=== PATIENT | male | born 1960 | race Caucasian/White ===

== ENCOUNTER 2017-11-03 13:08 | Inpatient (IN) | payer SELFPAY ==
[~2017-11-03] VITALS: Ht 175.3 cm; Wt 86.2 kg
[~2017-11-03 13:08] MED LIST: AMLO-546 PO; AMLO-99 PO; ASPI-715 PO; CRAN200C5 PO; DOCU-416 PO; EPLE25TA18 PO; EPLE50TA11 PO; GABA-549 PO; HCTZ25 PO; LEVE500T73 PO; LIS20 PO; METO-1 PO; METO50TA19 PO; NIFEDIPINE PO; OXYC-865 PO; PSE30 PO; TAMS0.4C25 PO; Work Note; [UNRECOGNIZED DRUG - REMARK]
--- NOTE | 2017-11-03 13:20 | ER Report ---
History and Physical Time Seen By MD: 13:20 HPI/ROS CHIEF COMPLAINT: Abdominal pain HISTORY OF PRESENT ILLNESS: 57-year-old male patient presents to emergency room with complaint of abdominal pain. Patient states has been going on for several days. He did go see his primary care provider yesterday. They did start him on antibiotics. He was offered a CT scan at that time as well as lab work. He refused at that time due to cost. Patient states that he has been having significant amounts of diarrhea. He is also had a few bouts of vomiting. Patient states the pain seems to be more in the left lower quadrant. Daughter states the patient does drink a significant amount of alcohol. That he drinks daily and she is seeing him drink half a gallon of spiced rum in an 8 hour period. She is concerned about possible cirrhosis as well. She also states that he has been confused, not acting like himself. He states he did have a fever yesterday of 103. Today he had a temperature of 98.6 in the emergency room. REVIEW OF SYSTEMS: Respiratory: No cough, no dyspnea. Cardiovascular: No chest pain, no palpitations. Gastrointestinal: As noted above Musculoskeletal: No back pain. Allergies: Coded Allergies: No Known Drug Allergies (Verified , 12/28/14) Home Meds Reported Medications Ciprofloxacin Hcl (CIPROFLOXACIN HCL) 500 Mg Tablet, 500 MG PO Q12H, #14 TAB 11/03/17 Metronidazole/Sodium Chloride (METRONIDAZOLE 500 MG/100 ML) 500 Mg/100 Ml Piggyback, 500 MG PO 11/03/17 Amlodipine Besylate (AMLODIPINE BESYLATE) 10 Mg Tablet, 1 TAB PO QDAY, TAB 12/28/14 Metoprolol Succinate (METOPROLOL SUCCINATE) 50 Mg Tab.er.24h, 1 TAB PO BID 08/06/13 Discontinued Reported Medications Gabapentin (GABAPENTIN) 300 Mg Capsule, 1 CAP PO QID, CAPSULE 12/28/15 Eplerenone (EPLERENONE) 50 Mg Tablet, 1 TAB PO QDAY, TAB 12/28/15 Discontinued Scripts [Work Note] No Conflict Check Patient seen in office today for routine followup. Advise he continue to work no more than 35-40 hrs/wk. Repeat eval in 1 month. 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 Patient has surgical history of sinus surgery, hernia repair, kidney stones. Patient has a family medical history of cancer, CAD, diabetes. Reviewed Nurses Notes: Yes Hx Smoking: No Smoking Status: Never Smoker Hx Substance Use Disorder: No Hx Alcohol Use: No Constitutional Vital Sign - Last 24 Hours 11/03/17 13:15 Temp 98.6 Pulse 78 Resp 18 B/P (MAP) 140/89 Pulse Ox 90 O2 Delivery Room Air Physical Exam General Appearance: The patient is alert, has no immediate need for airway protection and no current signs of toxicity. ENT: Tympanic membranes are pearly-joseph, auditory canals are patent, mucous membranes are moist. Respiratory: Chest is non tender, lungs are clear to auscultation. Cardiac: regular rate and rhythm Gastrointestinal: Abdomen is distended and tender in the left lower quadrant, no masses, bowel sounds normal. Musculoskeletal: Neck: Neck is supple and non tender. Extremities have full range of motion and are non tender. Skin: No rashes or lesions. DIFFERENTIAL DIAGNOSIS: After history and physical exam differential diagnosis was considered for abdominal pain including but not limited to appendicitis, cholecystitis, gastritis and urinary tract infection. Medical Decision Making Data Points Result Diagram: 11/03/17 1345 11/03/17 1345 Laboratory Hematology Test 11/03/17 13:45 11/03/17 15:46 Red Blood Count 4.77 M/uL (4.00-5.60) Mean Corpuscular Volume 97.8 fL (80.0-96.0) Mean Corpuscular Hemoglobin 34.3 pg (26.0-33.0) Mean Corpuscular Hemoglobin Concent 35.1 g/dL (32.0-36.0) Red Cell Distribution Width 13.0 % (11.5-14.5) Mean Platelet Volume 8.8 fL (7.2-11.1) Neutrophils (%) (Auto) 80.6 % (39.4-72.5) Lymphocytes (%) (Auto) 10.0 % (17.6-49.6) Monocytes (%) (Auto) 8.5 % (4.1-12.4) Eosinophils (%) (Auto) 0.4 % (0.4-6.7) Basophils (%) (Auto) 0.5 % (0.3-1.4) Nucleated RBC Relative Count (auto) 0.0 /100WBC Neutrophils # (Auto) 15.0 K/uL (2.0-7.4) Lymphocytes # (Auto) 1.9 K/uL (1.3-3.6) Monocytes # (Auto) 1.6 K/uL (0.3-1.0) Eosinophils # (Auto) 0.1 K/uL (0.0-0.5) Basophils # (Auto) 0.1 K/uL (0.0-0.1) Nucleated RBC Absolute Count (auto) 0.00 K/uL Sodium Level 137 mmol/L (137-145) Potassium Level 2.9 mmol/L (3.5-5.0) Chloride Level 95 mmol/L (98-107) Carbon Dioxide Level 28 mmol/L (22-30) Blood Urea Nitrogen 6 mg/dl (9-21) Creatinine 0.80 mg/dl (0.66-1.25) Glomerular Filtration Rate Calc > 60.0 Random Glucose 126 mg/dl (75-110) Calcium Level 9.2 mg/dl (8.4-10.2) Total Bilirubin 1.7 mg/dl (0.2-1.3) Aspartate Amino Transf (AST/SGOT) 39 U/L (0-35) Alanine Aminotransferase (ALT/SGPT) 31 U/L (0-56) Alkaline Phosphatase 170 U/L (0-126) Ammonia 17 UMOL/L (9-33) Total Protein 6.6 gm/dl (6.3-8.2) Albumin 3.4 g/dl (3.5-5.0) Amylase Level < 30 U/L (0-110) Lipase 106 U/L (23-300) Urine Color Regina Urine Clarity Clear Urine pH 6.0 pH (4.8-9.5) Urine Specific Muir 1.019 Urine Protein Negative mg/dL (NEGATIVE) Urine Glucose (UA) Negative mg/dL (NEGATIVE) Urine Ketones Negative mg/dL (NEGATIVE) Urine Blood Negative (NEGATIVE) Urine Nitrite Negative (NEGATIVE) Urine Bilirubin Negative (NEGATIVE) Urine Urobilinogen 2.0 mg/dL (0.2-1.9) Urine Leukocyte Esterase Trace (NEGATIVE) Urine RBC <1 /HPF (0-2/HPF) Urine WBC 1 /HPF (0-5/HPF) Urine Squamous Epithelial Cells None /LPF (</=FEW) Urine Bacteria Negative /HPF (NONE-FEW) Urine Mucus Few /HPF (NONE-FEW) Chemistry Test 11/03/17 13:45 11/03/17 15:46 White Blood Count 18.7 k/uL (4.5-11.0) Red Blood Count 4.77 M/uL (4.00-5.60) Hemoglobin 16.4 g/dL (14.0-18.0) Hematocrit 46.7 % (42.0-52.0) Mean Corpuscular Volume 97.8 fL (80.0-96.0) Mean Corpuscular Hemoglobin 34.3 pg (26.0-33.0) Mean Corpuscular Hemoglobin Concent 35.1 g/dL (32.0-36.0) Red Cell Distribution Width 13.0 % (11.5-14.5) Platelet Count 220 K/uL (150-450) Mean Platelet Volume 8.8 fL (7.2-11.1) Neutrophils (%) (Auto) 80.6 % (39.4-72.5) Lymphocytes (%) (Auto) 10.0 % (17.6-49.6) Monocytes (%) (Auto) 8.5 % (4.1-12.4) Eosinophils (%) (Auto) 0.4 % (0.4-6.7) Basophils (%) (Auto) 0.5 % (0.3-1.4) Nucleated RBC Relative Count (auto) 0.0 /100WBC Neutrophils # (Auto) 15.0 K/uL (2.0-7.4) Lymphocytes # (Auto) 1.9 K/uL (1.3-3.6) Monocytes # (Auto) 1.6 K/uL (0.3-1.0) Eosinophils # (Auto) 0.1 K/uL (0.0-0.5) Basophils # (Auto) 0.1 K/uL (0.0-0.1) Nucleated RBC Absolute Count (auto) 0.00 K/uL Glomerular Filtration Rate Calc > 60.0 Calcium Level 9.2 mg/dl (8.4-10.2) Total Bilirubin 1.7 mg/dl (0.2-1.3) Aspartate Amino Transf (AST/SGOT) 39 U/L (0-35) Alanine Aminotransferase (ALT/SGPT) 31 U/L (0-56) Alkaline Phosphatase 170 U/L (0-126) Ammonia 17 UMOL/L (9-33) Total Protein 6.6 gm/dl (6.3-8.2) Albumin 3.4 g/dl (3.5-5.0) Amylase Level < 30 U/L (0-110) Lipase 106 U/L (23-300) Urine Color Regina Urine Clarity Clear Urine pH 6.0 pH (4.8-9.5) Urine Specific Muir 1.019 Urine Protein Negative mg/dL (NEGATIVE) Urine Glucose (UA) Negative mg/dL (NEGATIVE) Urine Ketones Negative mg/dL (NEGATIVE) Urine Blood Negative (NEGATIVE) Urine Nitrite Negative (NEGATIVE) Urine Bilirubin Negative (NEGATIVE) Urine Urobilinogen 2.0 mg/dL (0.2-1.9) Urine Leukocyte Esterase Trace (NEGATIVE) Urine RBC <1 /HPF (0-2/HPF) Urine WBC 1 /HPF (0-5/HPF) Urine Squamous Epithelial Cells None /LPF (</=FEW) Urine Bacteria Negative /HPF (NONE-FEW) Urine Mucus Few /HPF (NONE-FEW) Urinalysis Test 11/03/17 15:46 Urine Color Regina Urine Clarity Clear Urine pH 6.0 pH (4.8-9.5) Urine Specific Muir 1.019 Urine Protein Negative mg/dL (NEGATIVE) Urine Glucose (UA) Negative mg/dL (NEGATIVE) Urine Ketones Negative mg/dL (NEGATIVE) Urine Blood Negative (NEGATIVE) Urine Nitrite Negative (NEGATIVE) Urine Bilirubin Negative (NEGATIVE) Urine Urobilinogen 2.0 mg/dL (0.2-1.9) Urine Leukocyte Esterase Trace (NEGATIVE) Urine RBC <1 /HPF (0-2/HPF) Urine WBC 1 /HPF (0-5/HPF) Urine Squamous Epithelial Cells None /LPF (</=FEW) Urine Bacteria Negative /HPF (NONE-FEW) Urine Mucus Few /HPF (NONE-FEW) EKG/Imaging Imaging EXAMINATION: CT HEAD WITHOUT CONTRAST COMPARISON: None available HISTORY: dizziness PROCEDURE: Noncontrast CT from the vertex through the skull base. One of the following dose optimization techniques was utilized in the performance of this exam: Automated exposure control; adjustment of the mA and/or kV according to the patient's size; or use of an iterative reconstruction technique. Specific details can be referenced in the facility's radiology CT exam operational policy. FINDINGS: Brain volume: Age-appropriate. Hemorrhage/extra-axial fluid: None. Mass effect/midline shift/edema: None. Ischemia: Joseph-white differentiation is preserved. Ventricles and basal cisterns: Within normal limits. Posterior fossa: Negative. Vessels: Negative. Calvarium, skull base, and scalp: Negative. Visualized sinuses and orbits: Mucosal thickening with regions of hyperostosis consistent with chronic inflammation. Small regions of chronic appearing erosion through the frontal sinus anterior wall. IMPRESSION: 1. No intracranial hemorrhage or mass effect. 2. No CT findings of acute ischemia. 3. Paranasal sinus chronic inflammation. Report Dictated By: Brennan Dutta MD at 11/03/2017 3:41 PM Report E-Signed By: Brennan Dtuta MD at 11/03/2017 3:46 PM EXAMINATION: CT abdomen and pelvis with contrast COMPARISON: None. HISTORY: Abdominal pain. PROCEDURE: Multiplanar contrast enhanced CT of the abdomen and pelvis with 75 mL intravenous Isovue 370. One of the following dose optimization techniques was utilized in the performance of this exam: Automated exposure control; adjustment of the mA and/or kV according to the patient's size; or use of an iterative reconstruction technique. Specific details can be referenced in the facility's radiology CT exam operational policy. FINDINGS: Visualized thorax: No evidence of acute disease within the visualized lower thorax. Liver: Micronodular hepatic contour with caudate lobe hypertrophy. A few subcentimeter hypodensities are incompletely characterized. Gallbladder and biliary system: Cholelithiasis. No bile duct dilation. Spleen: 12.6 cm homogeneous spleen. Pancreas: Negative. Adrenal glands: Negative. Kidneys and bladder: Subcentimeter cysts. Nonobstructing nephrolithiasis. No renal mass. Urinary bladder is unremarkable. Vessels: Mild aortoiliac atherosclerosis. No abdominal aortic aneurysm. Portal venous system and IVC are unremarkable. Mesenteric vessels are unremarkable. Scattered small portosystemic collaterals. Bowel and mesentery: Stomach is within normal limits. No small bowel obstruction or inflammation. Appendix is within normal limits. Pancolonic wall thickening and edema, greatest along the ascending, transverse, and rectosigmoid colon. No pneumatosis. Distal descending colon and sigmoid mild diverticulosis with no evidence of diverticular inflammation. Pelvic organs: Negative. Lymph nodes: No adenopathy. Free air/free fluid: Small volume of homogeneous low-attenuation abdominopelvic ascites. No organized fluid collection. No pneumoperitoneum. Abdominal wall and osseous structures: Abdominal wall is intact. L4-L5 and L5- S1 moderately advanced degenerative disc disease with moderate canal stenosis. IMPRESSION: 1. Micronodular liver and a small volume of ascites consistent with cirrhosis. 2. Although spleen size is within normal limits, there are scattered small venous collaterals suggestive of portal hypertension. 3. Pancolonic wall inflammation and edema. While this could in part be a reactive change to the free fluid, the findings are concerning for an acute infectious/inflammatory colitis. 4. Additional nonacute findings as described above. Results were discussed with ANDREW HERNANDEZ at 11/03/2017 4:00 PM. Report Dictated By: Brennan Dutta MD at 11/03/2017 3:46 PM Report E-Signed By: Brennan Dutta MD at 11/03/2017 4:02 PM ED Course/Re-evaluation ED Course Patient was admitted and examined, history and physical were obtained. Differential diagnoses were considered. On examination lungs are clear, heart is regular, abdomen is distended and tender to palpation especially in the left lower quadrant. A CBC, CMP, CT scan of the head, CT scan of abdomen and pelvis were done. Patient also had a urinalysis done. The urinalysis was unremarkable, however the CBC showed a white count of 18,000 with a left shift. CMP shows a AST of 37 as well as an alkaline phosphatase of 170, potassium 2.9. Patient did receive a 20 mEq K rider here in the emergency room.. CT scan of the head showed no acute findings. The CT scan of the abdomen and pelvis showed significant cirrhosis of the liver, portal hypertension as well as inflammatory changes throughout the colon consistent with an infectious colitis. I discussed the case with Dr. Genao, hospitalist, who agreed to accept the patient for admission. I discussed this with the patient and his daughter who verbalized understanding and agreement with plan. Decision to Disposition Date: November 03, 2017 Decision to Disposition Time: 16:49 Depart Departure Latest Vital Signs Vital Signs Date Time Temp Pulse Resp B/P (MAP) Pulse Ox O2 Delivery O2 Flow Rate FiO2 11/03/17 13:15 98.6 78 18 140/89 90 Room Air Impression: Primary Impression: Infectious colitis Additional Impression: Hypokalemia Condition: Condition Unchanged Disposition: Admitted from ER Referrals: BONY NAIR DNP, [employer] (PCP) Problem Qualifiers ANDREW HERNANDEZ November 03, 2017 13:20
[2017-11-03] MEDS ORDERED: METR500P18 PO (13:26)
[2017-11-03] MEDS ORDERED: NS(*) 0.9% 1000 ML BAG 1,000 ML IV ONE (13:27)
[2017-11-03] MEDS ORDERED: CIPR-214 PO (13:27)
[2017-11-03] MEDS ORDERED: IOPAMIDOL 76% 75 ML INFUS BTL 75 ML ONE (13:40)
[2017-11-03] MEDS ORDERED: ONDANSETRON 4 MG/2 ML VIAL IVP ONE (14:00)
[2017-11-03 14:03] LABS: PLATELET COUNT, AUTOMATED 220 K/uL (150-450)
[2017-11-03] MEDS ORDERED: KCL (*) 20 MEQ/100 ML PREMIX 100 ML IV ONE (14:10)
--- NOTE | 2017-11-03 15:50 | RADIOLOGY IMAGING REPORT ---
[place] [facility] [place] NAME: Faraz Romano : 1960 MR: [id number] V: [id number] EXAM DATE: ORDERING PHYSICIAN: ANDREW HERNANDEZ TECHNOLOGIST: Location: [facility] Patient: Faraz Romano : 1960 Visit/Account:[id number] Date of Sevice: 11/03/2017 EXAMINATION: CT HEAD WITHOUT CONTRAST COMPARISON: None available HISTORY: dizziness PROCEDURE: Noncontrast CT from the vertex through the skull base. One of the following dose optimizat ion techniques was utilized in the performance of this exam: Automated exposure control; adjustment o f the mA and/or kV according to the patient's size; or use of an iterative reconstruction technique. Specific details can be referenced in the facility's radiology CT exam operational policy. FINDINGS: Brain volume: Age-appropriate. Hemorrhage/extra-axial fluid: None. Mass effect/midline shift/edema: None. Ischemia: Joseph-white differentiation is preserved. Ventricles and basal cisterns: Within normal limits. Posterior fossa: Negative. Vessels: Negative. Calvarium, skull base, and scalp: Negative. Visualized sinuses and orbits: Mucosal thickening with regions of hyperostosis consistent with chroni c inflammation. Small regions of chronic appearing erosion through the frontal sinus anterior wall. IMPRESSION: 1. No intracranial hemorrhage or mass effect. 2. No CT findings of acute ischemia. 3. Paranasal sinus chronic inflammation. Report Dictated By: Brennan Dutta MD at 11/03/2017 3:41 PM Report E-Signed By: Brennan Dutta MD at 11/03/2017 3:46 PM WSN:[id number]
--- NOTE | 2017-11-03 16:05 | RADIOLOGY IMAGING REPORT ---
FACILITY: [facility] PATIENT NAME: Faraz Romano : 1960 MR: [id number] V: [id number] EXAM DATE: ORDERING PHYSICIAN: ANDREW HERNANDEZ TECHNOLOGIST: Location: [facility] Patient: Faraz Romano : 1960 Visit/Account:[id number] Date of Sevice: 11/03/2017 EXAMINATION: CT abdomen and pelvis with contrast COMPARISON: None. HISTORY: Abdominal pain. PROCEDURE: Multiplanar contrast enhanced CT of the abdomen and pelvis with 75 mL intravenous Isovue 3 70. One of the following dose optimization techniques was utilized in the performance of this exam: A utomated exposure control; adjustment of the mA and/or kV according to the patient's size; or use of an iterative reconstruction technique. Specific details can be referenced in the facility's radiolo gy CT exam operational policy. FINDINGS: Visualized thorax: No evidence of acute disease within the visualized lower thorax. Liver: Micronodular hepatic contour with caudate lobe hypertrophy. A few subcentimeter hypodensities are incompletely characterized. Gallbladder and biliary system: Cholelithiasis. No bile duct dilation. Spleen: 12.6 cm homogeneous spleen. Pancreas: Negative. Adrenal glands: Negative. Kidneys and bladder: Subcentimeter cysts. Nonobstructing nephrolithiasis. No renal mass. Urinary blad vijay is unremarkable. Vessels: Mild aortoiliac atherosclerosis. No abdominal aortic aneurysm. Portal venous system and IVC are unremarkable. Mesenteric vessels are unremarkable. Scattered small portosystemic collaterals. Bowel and mesentery: Stomach is within normal limits. No small bowel obstruction or inflammation. David endix is within normal limits. Pancolonic wall thickening and edema, greatest along the ascending, tr ansverse, and rectosigmoid colon. No pneumatosis. Distal descending colon and sigmoid mild diverticul osis with no evidence of diverticular inflammation. Pelvic organs: Negative. Lymph nodes: No adenopathy. Free air/free fluid: Small volume of homogeneous low-attenuation abdominopelvic ascites. No organized fluid collection. No pneumoperitoneum. Abdominal wall and osseous structures: Abdominal wall is intact. L4-L5 and L5-S1 moderately advanced degenerative disc disease with moderate canal stenosis. IMPRESSION: 1. Micronodular liver and a small volume of ascites consistent with cirrhosis. 2. Although spleen size is within normal limits, there are scattered small venous collaterals suggest valentina of portal hypertension. 3. Pancolonic wall inflammation and edema. While this could in part be a reactive change to the free fluid, the findings are concerning for an acute infectious/inflammatory colitis. 4. Additional nonacute findings as described above. Results were discussed with ANDREW HERNANDEZ at 11/03/2017 4:00 PM. Report Dictated By: Brennan Dutta MD at 11/03/2017 3:46 PM Report E-Signed By: Brennan Dutta MD at 11/03/2017 4:02 PM WSN:[id number]
[2017-11-03] MEDS ORDERED: METR-160 PO (17:25)
[2017-11-03] MEDS ORDERED: METO-253 PO (17:25)
[2017-11-03 17:29] VITALS: BP 144/95
[2017-11-03] MEDS ORDERED: KCL/NS* 20 MEQ/1000 ML PREMIX 1,000 ML IV PRN (18:19)
[2017-11-03] MEDS ORDERED: INFLUENZA VIRUS VAC 0.5 ML SYR IM ONLY ONE (18:20)
[2017-11-03] MEDS ORDERED: DIAZEPAM 10 MG TAB PO PRN ×2 (18:20)
--- NOTE | 2017-11-03 18:35 | History & Physical ---
History of Present Illness Chief Complaint Abdominal pain and diarrhea History of Present Illness This patient presented to the emergency room complaining of abdominal pain and diarrhea. He first sought care yesterday at a primary care clinic and was placed on treatment with ciprofloxacin and metronidazole. His symptoms failed to improve and he came to the emergency room today. His daughter also reports that he drinks heavily and has had withdrawal symptoms in the past. History Problems: (1) Alcoholism (2) Alcohol withdrawal (3) Subdural hematoma Status: Acute (4) Traumatic brain injury Status: Acute Home Meds Reported Medications Metronidazole (METRONIDAZOLE) 500 Mg Tablet, 500 MG PO TID, TAB 11/03/17 Metoprolol Tartrate (METOPROLOL TARTRATE) 50 Mg Tab, 1 TAB PO BID, TAB 11/03/17 Ciprofloxacin Hcl (CIPROFLOXACIN HCL) 500 Mg Tablet, 500 MG PO Q12H, #14 TAB 11/03/17 Amlodipine Besylate (AMLODIPINE BESYLATE) 10 Mg Tablet, 1 TAB PO QDAY, TAB 12/28/14 Discontinued Reported Medications Gabapentin (GABAPENTIN) 300 Mg Capsule, 1 CAP PO QID, CAPSULE 12/28/15 Eplerenone (EPLERENONE) 50 Mg Tablet, 1 TAB PO QDAY, TAB 12/28/15 Discontinued Scripts [Work Note] No Conflict Check Patient seen in office today for routine followup. Advise he continue to work no more than 35-40 hrs/wk. Repeat eval in 1 month. Prov:BONY NAIR DNP, [employer] 04/10/16 Allergies: Coded Allergies: No Known Drug Allergies (Verified , 12/28/14) Patient History: FH: cancer FATHER, Hx Smoking: No Smoking Status: Never Smoker Caffeine Intake: Tea Caffeine/Cups Per Day: 2 Hx Alcohol Use: Yes (4-5 A day) Alcohol Used: Liquor Hx Substance Use Disorder: No Social Drug Use: Never Review of Systems All Systems Reviewed/Normal: Yes, Except as Noted Gastrointestinal: Nausea, Diarrhea, Abdominal Pain Exam Vital Signs Vital Signs Date Time Temp Pulse Resp B/P (MAP) Pulse Ox O2 Delivery O2 Flow Rate FiO2 11/03/17 17:29 98.7 75 18 144/95 (111) 94 Nasal Cannula 2.0 Neuro: No Gross deficits Eyes: PERRLA Cardiovascular: Regular Rate and Rhythm Respiratory: Clear to Auscultation GI: Other (Distended with no discrete tenderness.) Extremities: No Edema Integumentary: No Jaundice, No Cyanosis Medical Decision Making Data Points Result Diagram: 11/03/17 1345 11/03/17 1345 Item Value Date Time Total Bilirubin 1.7 mg/dl H 11/03/17 1345 Aspartate Amino Transf (AST/SGOT) 39 U/L H 11/03/17 1345 Alanine Aminotransferase (ALT/SGPT) 31 U/L 11/03/17 1345 Alkaline Phosphatase 170 U/L H 11/03/17 1345 EKG / Imaging Imaging CT abdomen/pelvis reviewed. Assessment and Plan Problems: (1) Infectious colitis Status: Acute Assessment & Plan: He did present with abdominal pain and diarrhea. He was started on ciprofloxacin and Flagyl as an outpatient, but has only taken one dose. His CT scan shows findings consistent with colitis of the descending and sigmoid colon. We have ordered testing for C. diff and stool cultures. We will start appropriate treatment once the results of C. difficile return. (2) Cirrhosis of liver with ascites Assessment & Plan: His CT scan did show evidence of cirrhosis with ascites. His bilirubin is also elevated. (3) Portal hypertension Assessment & Plan: His CT scan also showed findings consistent with portal hypertension. (4) Hypokalemia Status: Acute Assessment & Plan: He did receive a potassium rider in the emergency room. Potassium has also been added to his IV fluids. (5) Alcohol withdrawal Assessment & Plan: He does have a history of alcohol withdrawal in the past. We have placed him on CIWA precautions with diazepam. Thiamine has also been added. Venous Thromboembolism Antithrombotics Is Pt On Any Antithrombotics?: No Exam Sepsis Risk: No Definite Risk IQRA IRIZARRY DO November 03, 2017 18:35
[2017-11-03] MEDS ORDERED: EPLE50TA11 PO (19:10)
[2017-11-03 19:37] VITALS: BP 135/85
[2017-11-03] MEDS: PROMETHAZINE 25 MG/ML 1 ML AMP IVP PRN (20:47)
[2017-11-03] MEDS: METOPROLOL TART 50 MG TAB PO SCH (20:47)
[2017-11-04] VITALS (7 sets, daily range): BP systolic 98–126; BP diastolic 62–86; Ht 175.3 cm; Wt 86.2 kg
[2017-11-04 06:30] LABS: PLATELET COUNT, AUTOMATED 208 K/uL (150-450)
[2017-11-04] MEDS: METOPROLOL TART 50 MG TAB PO SCH ×2 (09:00→21:26)
[2017-11-04] MEDS: THIAMINE HCL 200 MG/2 ML INJ IVP SCH (09:00)
[2017-11-04] MEDS: amLODIPine BESYL(*) 5 MG TAB PO SCH (09:00)
[2017-11-04] MEDS: FOLIC ACID 1 MG TAB PO SCH (09:00)
[2017-11-04] MEDS ORDERED: KCL (*) 20 MEQ/100 ML PREMIX 100 ML IV SCH (10:00)
[2017-11-04] MEDS: LOPERAMIDE HCL 2 MG CAP PO PRN ×2 (11:26→14:17)
[2017-11-04] MEDS: LEVOFLOXACIN/D5W 750 MG/150 ML 150 ML IVPB SCH (11:27)
--- NOTE | 2017-11-04 12:18 | Medical Nutrition Therapy ---
Nutrition Anthropometrics Height (Inches): 69.00 Height (Calculated Centimeters: 175.931996 Weight (Pounds): 190 Weight (Calculated Kilograms): 86.183 BMI Calculated: 28.06 Jaison Nutrition Score: Probably Inadequate Jaison Nutrition Risk Score: 18 Dietary Referral Nutrition Risk Factors: Nutrition Risk Comment: Physical Findings Physical Appearance: Overweight BMI 25-29 Skin Appearance Skin Appearance: Edema Edema Location Modifier: Both Edema Location: Lower Extremity Type of Edema: Degree of Edema: 1+ Gastrointestinal Symptoms GI Symtoms: Nausea, Diarrhea Tube Present: Bowel Sounds: Recent Bowel Pattern: Diarrhea Stool Characteristics: Nutrition/Food History Decreased Appetite Alcohol Use: Currently Nutritional Diagnosis Nutritional Risk Acuity 2: Liver Cirrhosis Nutritional Risk Acuity 3: Alcohol abuse Past Medical History: Alcoholism, Alcohol withdrawal, Subdural hematoma, Traumatic brain injury, Liver cirrhosis Nutritional Acuity: 2-Moderate Nutrition Diagnosis: Altered GI Function, Excessive Alcohol Intake Nutrition Etiology: Physiological Causes, Alcohol Addiction Nutrition Problem/Etiology/Sym: Excessive Alcohol Intake related to Alcohol addiction AEB diagnosis of cirrhosis with acities and reports of patient's daily alcohol intake 4-5 drinks/day. Altered Gastrointestinal (GI) Function related to alteration in gastrointestinal tract function secondary to infectious colitis AEB positive diagnosis with CT of the abdomen and abdominal pain, diarrhea prior to admit. Energy Requirement: 2300 ([place]-St Jeor: IBW BW X 1.5) Protein Requirement: 73 (IBW Kg X 1.0) Diet Type: Soft Mechanical Nutrition Intervention: Cont diet as ordered Nutrition Monitoring & Eval Nutrition Goals: Eat 75-100% Meal RD Patient Assessment Time: [address] Assessment Type: RD Assessment Patient Nutrition Acuity: 2-Moderate Follow Up Date: November 07, 2017 Nutritional Comment: Pt admitted with infectious colitis and cirrhosis of liver with ascities. History of ETOH abuse. Pt overwt with BMI of 28.1 - may not be accurate d/t ascities. Alb 2.7, High WBC, low K+. Receiving Soft mechanical diet with no reports of intake. Follow labs, intake, wt changes, etc. -VEENA SANCHEZ November 04, 2017 12:18
--- NOTE | 2017-11-04 13:28 | Hospitalist Progress Note ---
Subjective Progress Notes Subjective He reports that the frequency and consistency of the diarrhea are unchanged. He denies nausea or chills. Physical Exam Vital Signs Date Time Temp Pulse Resp B/P (MAP) Pulse Ox O2 Delivery O2 Flow Rate FiO2 11/04/17 11:30 98.6 57 16 114/77 (89) 93 Room Air 1.5 Intake and Output 11/05/17 07:00 # Voids 1 General Appearance: Alert, Awake, No Acute Distress GI: Other (Mildly distended and mildly firm. Normally active. Some pain, but no guarding with aplation diffusely) Result Diagram: 11/04/1762211/04/17622 Assessment and Plan Problems: (1) Infectious colitis Status: Acute Assessment & Plan: He presented with several days of abdominal pain and watery diarrhea, which has persisted. WBC elevated, but afebrile. He was started on Ciprofloxacin and Metronidazole as an outpatient, but has only taken one dose. His CT scan shows findings consistent with colitis of the descending and sigmoid colon. C. Diff testing is negative and stool cultures are pending. Levofloxacin/Metronidazole started. (2) Hypokalemia Status: Acute Assessment & Plan: He has received IV KCL, but potassium this morning is down to 2.6. Will give dose of Mg, then 40mEq of KCL. Check Mg/BMP in the morning. (3) Cirrhosis of liver with ascites Assessment & Plan: His CT scan did show evidence of cirrhosis with ascites. His bilirubin is also elevated. (4) Portal hypertension Assessment & Plan: His CT scan also showed findings consistent with portal hypertension. (5) Alcohol withdrawal Assessment & Plan: He does have a history of alcohol withdrawal in the past. We have placed him on CIWA precautions with diazepam. Thiamine has also been added. Exam Sepsis Risk: No Definite Risk JULIO CESAR SANCHEZ MD November 04, 2017 13:28
[2017-11-04] MEDS ORDERED: KCL (*) 20 MEQ/100 ML PREMIX 100 ML IV ONE (14:00)
[2017-11-04] MEDS: metroNIDAZOLE* 500MG/100ML BAG 100 ML IVPB SCH ×2 (14:06→20:37)
[2017-11-04] MEDS ORDERED: NS(*) 0.9% 500 ML BAG 500 ML ONE (14:19)
[2017-11-04] MEDS ORDERED: MAGNESIUM SUL* 2 GM/50 ML IVPB 50 ML IVPB ONE (16:00)
[2017-11-04] MEDS: KCL (*) 20 MEQ/100 ML PREMIX 100 ML IVPB SCH ×2 (19:10→21:27)
[2017-11-05 03:07] VITALS: BP 105/66
[2017-11-05] MEDS: metroNIDAZOLE* 500MG/100ML BAG 100 ML IVPB SCH ×3 (03:30→19:36)
[2017-11-05 05:55] LABS: PLATELET COUNT, AUTOMATED 201 K/uL (150-450)
[2017-11-05 08:23] VITALS: BP 121/82
[2017-11-05] MEDS: THIAMINE HCL 200 MG/2 ML INJ IVP SCH (08:24)
[2017-11-05] MEDS: FOLIC ACID 1 MG TAB PO SCH (08:24)
[2017-11-05] MEDS: amLODIPine BESYL(*) 5 MG TAB PO SCH (08:24)
[2017-11-05] MEDS: METOPROLOL TART 50 MG TAB PO SCH ×2 (08:24→20:46)
[2017-11-05] MEDS ORDERED: EPLERENONE 50 MG PO SCH (09:00)
[2017-11-05] MEDS ORDERED: POTASSIUM CHL 20 MEQ TABCR PO ONE (09:05)
[2017-11-05] MEDS: LEVOFLOXACIN/D5W 750 MG/150 ML 150 ML IVPB SCH (10:00)
[2017-11-05 12:09] VITALS: BP 111/80
--- NOTE | 2017-11-05 12:15 | Hospitalist Progress Note ---
Subjective Progress Notes Subjective He reports he is starting to feel better today. He has decreased bowel movements since admission. Patient Complains of: Cardiovascular: No: Chest Pain Respiratory: No: Shortness of Breath Physical Exam Vital Signs Date Time Temp Pulse Resp B/P (MAP) Pulse Ox O2 Delivery O2 Flow Rate FiO2 11/05/17 08:23 98.4 68 18 121/82 (95) 89 Room Air 11/04/17 15:25 1.5 Intake and Output 11/06/17 01:00 Intake Total 240 ml Balance 240 ml Intake Oral 240 ml General Appearance: Alert, Awake, No Acute Distress, Afebrile Neuro: No Gross deficits Cardiovascular: Regular Rate and Rhythm Respiratory: No Respiratory Distress, Clear to Auscultation GI: Other (ascities noted to abdomen) Extremities: Edema (1+ pitting edema) Psych: Alert & Oriented X3, Appropriate Mood & Affect Result Diagram: 11/05/1752211/05/17522 Assessment and Plan Problems: (1) Infectious colitis Status: Acute Assessment & Plan: He presented with several days of abdominal pain and watery diarrhea, which has improved. WBC elevated, but afebrile. He was started on Ciprofloxacin and Metronidazole as an outpatient, but has only taken one dose. His CT scan shows findings consistent with colitis of the descending and sigmoid colon. C. Diff testing is negative and stool cultures are showing normal dang. Levofloxacin/Metronidazole started. (2) Hypokalemia Status: Acute Assessment & Plan: He has received IV KCL, and potassium is 3.4. He will take oral potassium today. Check BMP in the morning. (3) Cirrhosis of liver with ascites Assessment & Plan: His CT scan did show evidence of cirrhosis with ascites. His bilirubin is also elevated. (4) Portal hypertension Assessment & Plan: His CT scan also showed findings consistent with portal hypertension. (5) Alcohol withdrawal Assessment & Plan: He does have a history of alcohol withdrawal in the past. We have placed him on CIWA precautions with diazepam. Thiamine has also been added. (6) Hypertension Status: Chronic Assessment & Plan: He has been on chronic treatment with Metoprolol and Eplerenone. It is unsure if the patient has been taking his medications at home. We will do an echo today and check BNP to be sure the patient does not have heart failure. Exam Sepsis Risk: No Definite Risk Problem Qualifiers (1) Hypertension: Hypertension type: essential hypertension Qualified Codes: I10 - Essential ( primary) hypertension ELMO REECE ECHOCARDIOGRAPH TECH November 05, 2017 12:15
--- NOTE | 2017-11-05 13:59 | SPEECH INITIAL EVALUATION ---
INITIAL SPEECH THERAPY EVALUATION REPORT Cognitive Communication Assessment Patient Name: Faraz Romano Date of Evaluation: 11/05/2017 Patient : 1960 Clinician: Stephanie Thomson M.S., CCC-DISHTANK OPERATOR Treatment Dx: Moderate cognitive communicative deficit BACKGROUND The patient is a 57 year old male admitted to [facility] through the ER following complaints of abdominal pain and diarrhea. Pt was admitted w/ colitis and hx of liver cirrhosis 2/2 ETOH abuse. Daughter reported notable confusion at time of admission. Daughter also reports hx of subdural hemorrhage occurring appx 2 years ago s/p fall in home environment. ST was referred to analyze pts cognition and develop appropriate recommendations for safe discharge following stabilization in medial status. LANGUAGE/COGNITION The Brian Cognitive Assessment (MoCA) 7.3 alternative version was administered with the following results: -MoCA Total Score (TS): 16/30 = moderate cognitive impairment -Cognitive Domains Demonstrating Deficits: attention, immediate memory, short- term memory, working memory, orientation, and executive function. -Cognitive Domains Demonstrating Strength: visuospatial skills, verbal naming, and abstraction. Functional Communication Deficits: The patient has functionally impaired cognitive/communicative skills and is unsafe for discharge to prior living situation at this time. SPEECH: WFL. VOICE: WFL. DYSPHAGIA: WFL w/ h20 screen. However, daughter reports some hx of pill dysphagia, esophageal dysphagia, and heartburn/reflux. ST will f/u w/ further analysis as appropriate. SUMMARY Pt presents w/ moderate cognitive communicative deficits characterized by impairments in sustained attention, immediate memory, working memory, and delayed recall. Pt also exhibited mild deficits during activities requiring executive function skills. Results indicate the patient may demonstrate impairments completed IADL's including the following tasks: Coordinating and remembering to attend medical appointments Execution of complex instructions for safety and medical purposes Independent medication management Independent financial examiner Attending to environmental hazards and obstacles Pragmatic deficits were observed during informal conversational tasks w/ difficulty interpreting humor and somewhat abrupt, non-elaborative verbal responses. Pt struggled to identify errors during assessment tasks, and appeared to reach cognitive overload by the end of evaluation procedures. Pt w/ emerging insight re: cognitive communicative deficits, admitting to high level of disorientation, gradual decline in short term memory "for a while", and inability to describe medical etiology or course of hospitalization. ST will follow for cognitive linguistic therapy to address deficits observed in attention, memory, and functional problem solving skills. RECOMMENDATIONS 1. ST 3x/wk PROGNOSIS: Good. PLAN OF CARE Short Term Goals 1. The patient will utilize working memory strategies during 90% of opportunities with min verbal/visual cues to support capacity for new learning, promote safety, and minimize cognitive overload. 2. The patient will utilize trained strategies to promote sustained attention to functional ADL/IADL activities (ie. thought organization, planning, scheduling) with 90% accuracy. Long-Term Goals 1. The patient will demonstrate functional cognitive communication status for safety and maximized independence in d/c environment w/ appropriate access to home and community resources. Thank you for this referral. Please call [phone] Stephanie Thomson M.S., CCC-DISHTANK OPERATOR [*] BROOK
[2017-11-05 14:21] LABS: INR 1.36
[2017-11-05 19:32] VITALS: BP 127/87
[2017-11-05 23:32] VITALS: BP 111/73
[2017-11-06] MEDS: metroNIDAZOLE* 500MG/100ML BAG 100 ML IVPB SCH (03:16)
[2017-11-06 03:17] VITALS: BP 92/57
[2017-11-06 06:06] LABS: PLATELET COUNT, AUTOMATED 196 K/uL (150-450)
[2017-11-06 07:30] VITALS: BP 114/78
[2017-11-06] MEDS ORDERED: KCL (*) 20 MEQ/100 ML PREMIX 100 ML IV SCH (07:40)
[2017-11-06] MEDS: FOLIC ACID/CYANOCOB/PYRIDOXINE PO SCH (08:17)
[2017-11-06] MEDS: FOLIC ACID 1 MG TAB PO SCH (08:18)
[2017-11-06] MEDS: SPIRONOLACTONE 25 MG TAB PO SCH (08:18)
[2017-11-06] MEDS: LOPERAMIDE HCL 2 MG CAP PO PRN (08:18)
[2017-11-06] MEDS: METOPROLOL TART 50 MG TAB PO SCH ×2 (08:19→21:38)
[2017-11-06] MEDS: LEVOFLOXACIN 750 MG TAB PO SCH (10:00)
[2017-11-06] MEDS ORDERED: NS(*) 0.9% 500 ML BAG 500 ML ONE (10:11)
[2017-11-06 11:44] VITALS: BP 125/83
--- NOTE | 2017-11-06 12:01 | Hospitalist Progress Note ---
Subjective Progress Notes Subjective He reports overall improvement in diarrhea. Slept well. Physical Exam Vital Signs Date Time Temp Pulse Resp B/P (MAP) Pulse Ox O2 Delivery O2 Flow Rate FiO2 11/06/17 11:44 98.4 78 18 125/83 (97) 91 Room Air 11/04/17 15:25 1.5 Intake and Output 11/07/17 07:00 Intake Total 120 ml Balance 120 ml Intake Oral 120 ml General Appearance: Alert, Awake, No Acute Distress GI: Other (Distended, but non-tender to palpation) Extremities: Edema (trace pitting in shins) Result Diagram: 11/06/1737 11/06/1737 Assessment and Plan Problems: (1) Infectious colitis Status: Acute Assessment & Plan: He presented with several days of abdominal pain and watery diarrhea, which has improved. WBC elevated, but afebrile. He was started on Ciprofloxacin and Metronidazole as an outpatient, but has only taken one dose. His CT scan shows findings consistent with colitis of the descending and sigmoid colon. C. Diff testing is negative and stool cultures are showing normal dang. Levofloxacin/Metronidazole to be changed to oral. (2) Hypokalemia Status: Acute Assessment & Plan: He has received multiple doses of IV KCL, and potassium is 3.0. He will more IV potassium today. Spironolactone added. Check BMP in the morning. (3) Cirrhosis of liver with ascites Assessment & Plan: His CT scan did show evidence of cirrhosis with ascites. His bilirubin is also elevated. Will start spironolactone. He likely would benefit from furosemide. (4) Portal hypertension Assessment & Plan: His CT scan also showed findings consistent with portal hypertension. (5) Hypertension Status: Chronic Assessment & Plan: He has been on chronic treatment with Metoprolol. Echo pending. Normal BNP. Metoprolol has been decreased to allow for addition of spironolactone. He might need to be weaned off of it to allow addition of furosemide. (6) Alcohol withdrawal Assessment & Plan: He does have a history of alcohol withdrawal in the past. We had placed him on CIWA, but that has been stopped. Thiamine has also been added. Exam Sepsis Risk: No Definite Risk Problem Qualifiers (1) Hypertension: Hypertension type: essential hypertension Qualified Codes: I10 - Essential ( primary) hypertension JULIO CESAR SANCHEZ MD November 06, 2017 12:00
[2017-11-06] MEDS: METRONIDAZOLE 500 MG TABLET PO SCH ×3 (13:31→21:38)
[2017-11-06 15:25] VITALS: BP 120/86
[2017-11-06 20:00] VITALS: BP 126/84
[2017-11-07] MEDS: PROMETHAZINE 25 MG/ML 1 ML AMP IVP PRN (00:52)
[2017-11-07 04:24] VITALS: BP 138/87
[2017-11-07 07:23] LABS: PLATELET COUNT, AUTOMATED 201 K/uL (150-450)
[2017-11-07 07:44] VITALS: BP 117/82
[2017-11-07] MEDS ORDERED: KCL (*) 20 MEQ/100 ML PREMIX 100 ML IV ONE (08:50)
[2017-11-07] MEDS: METRONIDAZOLE 500 MG TABLET PO SCH ×4 (09:42→19:57)
[2017-11-07] MEDS: THIAMINE HCL 100 MG TAB PO SCH (09:42)
[2017-11-07] MEDS: LEVOFLOXACIN 750 MG TAB PO SCH (09:42)
[2017-11-07] MEDS: SPIRONOLACTONE 25 MG TAB PO SCH (09:42)
[2017-11-07] MEDS: FOLIC ACID 1 MG TAB PO SCH (09:42)
[2017-11-07] MEDS: FOLIC ACID/CYANOCOB/PYRIDOXINE PO SCH (09:49)
--- NOTE | 2017-11-07 11:05 | Hospitalist Progress Note ---
Subjective Progress Notes Subjective He reports improvements in abdominal symptoms. Patient Complains of: Cardiovascular: No: Chest Pain Respiratory: No: Shortness of Breath Physical Exam Vital Signs Date Time Temp Pulse Resp B/P (MAP) Pulse Ox O2 Delivery O2 Flow Rate FiO2 11/07/17 07:54 91 Room Air 11/07/17 07:44 98.4 76 12 117/82 (94) 11/06/17 20:00 1.5 Intake and Output 11/08/17 01:00 Intake Total 0 ml Balance 0 ml Intake Oral 0 ml # Voids 3 # Bowel Movements 2 General Appearance: Alert, Awake, No Acute Distress, Afebrile Neuro: Other (patient appears having difficulty remembering short term things) Cardiovascular: Regular Rate and Rhythm Respiratory: No Respiratory Distress, Clear to Auscultation GI: Other (abdomen distended) Extremities: Edema (2+ pitting edema) Psych: Alert & Oriented X3, Appropriate Mood & Affect Result Diagram: 11/07/1770611/07/17706 Assessment and Plan Problems: (1) Infectious colitis Status: Acute Assessment & Plan: He presented with several days of abdominal pain and watery diarrhea, which has improved. WBC elevated, but afebrile. He was started on Ciprofloxacin and Metronidazole as an outpatient, but has only taken one dose. His CT scan shows findings consistent with colitis of the descending and sigmoid colon. C. Diff testing is negative and stool cultures are showing normal dang. Levofloxacin/Metronidazole to be changed to oral. (2) Hypokalemia Status: Acute Assessment & Plan: He has received multiple doses of IV KCL, and potassium is 3.1. He will more IV potassium today. Spironolactone increased to 50mg today. Check BMP in the morning. (3) Cirrhosis of liver with ascites Assessment & Plan: His CT scan did show evidence of cirrhosis with ascites. His bilirubin is also elevated. Will start spironolactone. He likely would benefit from furosemide. (4) Portal hypertension Assessment & Plan: His CT scan also showed findings consistent with portal hypertension. (5) Hypertension Status: Chronic Assessment & Plan: He has been on chronic treatment with Metoprolol. Echo pending. Normal BNP. Metoprolol has been stopped to allow for addition of spironolactone and possibly furosemide. (6) Alcohol withdrawal Assessment & Plan: He does have a history of alcohol withdrawal in the past. We had placed him on CIWA, but that has been stopped. Thiamine and B Complex vitamins have also been added. (7) Traumatic brain injury Status: Chronic Assessment & Plan: He has a history of TBI from a fall in 2016. Patient is showing cognition issues. ST has been ordered for cognitive evaluation. Psych will perform cognitive evaluation as well, to assure patient is safe to go home alone. Exam Sepsis Risk: No Definite Risk Problem Qualifiers (1) Hypertension: Hypertension type: essential hypertension Qualified Codes: I10 - Essential ( primary) hypertension ELMO REECEP November 07, 2017 11:05
[2017-11-07 12:11] VITALS: BP 127/88
--- NOTE | 2017-11-07 14:44 | Medical Nutrition Therapy ---
Nutrition Anthropometrics Height (Inches): 69.00 Height (Calculated Centimeters: 175.142014 Weight (Pounds): 190 Weight (Calculated Kilograms): 86.183 BMI Calculated: 28.06 Jaison Nutrition Score: Probably Inadequate Jaison Nutrition Risk Score: 18 Dietary Referral Nutrition Risk Factors: Nutrition Risk Comment: Physical Findings Physical Appearance: Overweight BMI 25-29 Skin Appearance Skin Appearance: Edema Edema Location Modifier: Right Edema Location: Foot Type of Edema: Degree of Edema: 2+ Gastrointestinal Symptoms GI Symtoms: Diarrhea Tube Present: Bowel Sounds: Recent Bowel Pattern: Diarrhea Stool Characteristics: Nutritional Diagnosis Nutritional Risk Acuity 2: Liver Cirrhosis Nutritional Risk Acuity 3: Alcohol abuse Past Medical History: Alcoholism, Alcohol withdrawal, Subdural hematoma, Traumatic brain injury, Liver cirrhosis Nutritional Acuity: 2-Moderate Nutrition Diagnosis: Altered GI Function, Excessive Alcohol Intake Nutrition Etiology: Physiological Causes, Alcohol Addiction Nutrition Problem/Etiology/Sym: Excessive Alcohol Intake related to Alcohol addiction AEB diagnosis of cirrhosis with acities and reports of patient's daily alcohol intake 4-5 drinks/day. Altered Gastrointestinal (GI) Function related to alteration in gastrointestinal tract function secondary to infectious colitis AEB positive diagnosis with CT of the abdomen and abdominal pain, diarrhea prior to admit. Energy Requirement: 2300 ([place]-St Jeor: IBW BW X 1.5) Protein Requirement: 73 (IBW Kg X 1.0) Diet Type: Soft Mechanical Nutrition Intervention: Cont diet as ordered, Between meal supplement Diet Comment To [facility]: OFFER NUTRITON SUPPLEMENT Nutrition Monitoring & Eval RD Patient Assessment Time: [address] Assessment Type: RD Re-Assessment Patient Nutrition Acuity: 2-Moderate Follow Up Date: November 12, 2017 Nutritional Comment: Pt admitted with infectious colitis and cirrhosis of liver with ascities. History of ETOH abuse. Pt overwt with BMI of 28.1 - may not be accurate d/t ascities. Alb 2.7, High WBC, low K+. Receiving Soft mechanical diet with no reports of intake. Follow labs, intake, wt changes, etc. -DRT 11/07 Pt is having improvement with watery diarrhea. Pt is still receiving mechanical diet with 25% oral intake. Provide nutrition supplement to help pt meet nutrient needs. Pt wt has remained the same since last follow up. Notable labs indicate low alb 2.5 and low K+ 3.1. Pt is receiving higher dose of K+ via IV. Continue to monitor pt progress, intake and labs. JACOB RUSSJIANGJOSÉ MANUEL FOLEY November 07, 2017 10:31
--- NOTE | 2017-11-07 15:13 | RADIOLOGY IMAGING REPORT ---
FACILITY: [facility] PATIENT NAME: SHAHZAD MATHEWS : [id number] MR: [id number] V: [id number] EXAM DATE: [id number] ORDERING PHYSICIAN: ELMO REECE TECHNOLOGIST: Verónica Alejandre EXAMINATION:TWO-DIMENSIONAL ECHOCARDIOGRAPH REASON:LOWER EXTREMITY EDEMA/ASCITES/HEART FAILURE 2D Measurements (normal values in centimeters) LV endLV endRV endVent.LV PostAorticLeftPercent DiastolicSystolicDiastolicSeptumWallRootAtriumShortening (3.5-5.7)(0.9-2.6)(0.6-1.1)(0.6-1.1)(2.0-3.7)(1.9-4.0)(25-35%) [id number]% STROKE VOLUME: 62ml ESTIMATED EJECTION FRACTION:67% LEFT VENTRICLE: Normal chamber size, moderately thickened posterior wall, mildly thickened septal wall with no evidence of LVOT obstruction consistent with asymmetric hypertrophy. Ejection fraction 60-65%. Normal diastolic function. RIGHT VENTRICLE: Normal size & function. RIGHT ATRIUM: Normal size & function. LEFT ATRIUM: Normal size & function. AORTIC VALVE: Mild leaflet tip sclerosis without significant stenosis or regurgitation. PULMONIC VALVE: Poorly identified but no significant stenosis or regurgitation noted. MITRAL VALVE: No significant stenosis or regurgitation noted, structurally & functionally within normal limits. TRICUSPID VALVE: Mild regurgitation, RVSP estimated at 27mm Hg. AORTA: Within normal size. No evidence of aneurysm. PERICARDIUM: No evidence of pericardial or pleural effusion. OVERALL IMPRESSION: 1. Ejection fraction 60-65%. 2. Mild tricuspid regurgitation with normal RVSP. 3. Asymmetric left ventricular hypertrophy without LVOT obstruction. 4. Compared to prior 01/06/12 largely unchanged. Dictated by: Price Stauffer M.D. on 11/06/2017 at 15:21 Transcribed by: MAYA on 11/07/2017 at 7:25 Approved by: Price Stauffer M.D. on 11/07/2017 at 15:11 [facility]
[2017-11-07 16:07] VITALS: BP 138/78
[2017-11-07] MEDS: POTASSIUM CHL 20 MEQ TABCR PO SCH (18:13)
[2017-11-07 19:56] VITALS: BP 136/99
[2017-11-07 23:01] VITALS: BP 134/88
[2017-11-08 05:06] VITALS: BP 138/95
[2017-11-08 06:06] LABS: INR 1.49
[2017-11-08 06:14] LABS: PLATELET COUNT, AUTOMATED 197 K/uL (150-450)
[2017-11-08 08:23] VITALS: BP 140/99
[2017-11-08] MEDS: METRONIDAZOLE 500 MG TABLET PO SCH ×2 (08:28→12:50)
[2017-11-08] MEDS: POTASSIUM CHL 20 MEQ TABCR PO SCH (08:28)
[2017-11-08] MEDS: THIAMINE HCL 100 MG TAB PO SCH (08:28)
[2017-11-08] MEDS: FOLIC ACID 1 MG TAB PO SCH (08:28)
[2017-11-08] MEDS: SPIRONOLACTONE 25 MG TAB PO SCH (08:29)
[2017-11-08] MEDS: LOPERAMIDE HCL 2 MG CAP PO PRN (08:29)
[2017-11-08] MEDS: FOLIC ACID/CYANOCOB/PYRIDOXINE PO SCH (08:29)
[2017-11-08] MEDS: LEVOFLOXACIN 750 MG TAB PO SCH (09:17)
[2017-11-08] MEDS ORDERED: SPIR50TA31 PO (10:04)
[2017-11-08] MEDS ORDERED: FOLTX PO (10:04)
[2017-11-08] MEDS ORDERED: FOLI-68 PO (10:04)
[2017-11-08] MEDS ORDERED: POTA20TA94 PO (10:04)
--- NOTE | 2017-11-08 10:09 | Hospitalist Depart ---
Discharge Summary Reason for Hosp/Final Diag: (1) Infectious colitis Status: Acute Hospital Course & Plan: He presented with several days of abdominal pain and watery diarrhea, which has improved. WBC elevated, but afebrile. He was started on Ciprofloxacin and Metronidazole as an outpatient, but has only taken one dose. His CT scan shows findings consistent with colitis of the descending and sigmoid colon. C. Diff testing is negative and stool cultures are showing normal dang. Ciprofloxacin/Metronidazole to be taken at home. (2) Hypokalemia Status: Acute Hospital Course & Plan: He has received multiple doses of IV KCL, and potassium is 3.2. Spironolactone increased to 50mg today. He will take Potassium orally twice daily at home. He will recheck labs next week with PCP. (3) Cirrhosis of liver with ascites Hospital Course & Plan: His CT scan did show evidence of cirrhosis with ascites. His bilirubin is also elevated. Will start spironolactone. He likely would benefit from furosemide, but will need to be started by PCP. (4) Portal hypertension Hospital Course & Plan: His CT scan also showed findings consistent with portal hypertension. (5) Hypertension Status: Chronic Hospital Course & Plan: He has been on chronic treatment with Metoprolol. Echo shows normal ejection fraction. Normal BNP. Metoprolol has been stopped to allow for addition of spironolactone and possibly furosemide. (6) Alcohol withdrawal Hospital Course & Plan: He does have a history of alcohol withdrawal in the past. We had placed him on CIWA, but that has been stopped. Thiamine and B Complex vitamins have also been added. (7) Traumatic brain injury Status: Chronic Hospital Course & Plan: He has a history of TBI from a fall in 2016. Patient is showing cognition issues. ST was ordered for cognitive evaluation. Psych performed cognitive evaluation as well, to assure patient is safe to go home alone. His daughter will continue to help him with daily functions. Departure Latest Vital Signs Vital Signs 11/06/17 11/08/17 11/08/17 20:00 08:23 08:25 Temp 98.4 Pulse 108 Resp 24 B/P (MAP) 140/99 (113) Pulse Ox 94 O2 Delivery Room Air O2 Flow Rate 1.5 Weight (Pounds): 190 Result Diagram: 11/08/17 0542 11/08/17 0542 Condition: Improved Discharge: Home, Self Care Discharge Instructions Home Meds Active Scripts Folic Acid (FOLIC ACID) 1 Mg Tablet, 1 MG PO QDAY, #30 TAB Prov:ELMO REECE [employer]FF[employer] SUPERVISOR 11/08/17 Folic Acid/Cyanocob/Pyridoxine (FOLBEE TABLET) 1 Each Tab, 1 EACH PO QDAY, #30 TAB Prov:ELMO REECE [facility] 11/08/17 Potassium Chloride (POTASSIUM CHLORIDE) 20 Meq Tab.er.prt, 20 MEQ PO BIDBS, #20 TAB Prov:ELMO REECE [facility] 11/08/17 Spironolactone (SPIRONOLACTONE) 50 Mg Tablet, 50 MG PO DAILY, #30 TAB Prov:ELMO REECE [facility] 11/08/17 Reported Medications Eplerenone (EPLERENONE) 50 Mg Tablet, 50 MG PO DAILY 11/03/17 Metronidazole (METRONIDAZOLE) 500 Mg Tablet, 500 MG PO TID, TAB 11/03/17 Metoprolol Tartrate (METOPROLOL TARTRATE) 50 Mg Tab, 1 TAB PO BID, TAB 11/03/17 Ciprofloxacin Hcl (CIPROFLOXACIN HCL) 500 Mg Tablet, 500 MG PO Q12H, #14 TAB 11/03/17 Amlodipine Besylate (AMLODIPINE BESYLATE) 10 Mg Tablet, 1 TAB PO QDAY, TAB 12/28/14 Discontinued Reported Medications Gabapentin (GABAPENTIN) 300 Mg Capsule, 1 CAP PO QID, CAPSULE 12/28/15 Eplerenone (EPLERENONE) 50 Mg Tablet, 1 TAB PO QDAY, TAB 12/28/15 Discontinued Scripts [Work Note] No Conflict Check Patient seen in office today for routine followup. Advise he continue to work no more than 35-40 hrs/wk. Repeat eval in 1 month. Prov:BONY NAIR DNP, FNP-BC 04/10/16 Diet: Regular Activity: As Tolerated Copies to: BONY NAIR DNP, FNP-BC Venous Thromboembolism Antithrombotics Is Pt On Any Antithrombotics?: No Problem Qualifiers (1) Hypertension: Hypertension type: essential hypertension Qualified Codes: I10 - Essential ( primary) hypertension ELMO REECE RAMILA November 08, 2017 10:09
[2017-11-08 11:24] VITALS: BP 148/103
[2017-11-08] MEDS ORDERED: SPIRONOLACTONE 25 MG TAB PO SCH (14:00)
== END 2017-11-08 17:10 | disposition home or self-care (01) | DRG 392 ==
LOC: ER 13:17 → MED 16:45
PROVIDERS: ADMIT Family Medicine; ATTEND Family Medicine
DX: A09 Infectious gastroenteritis and colitis, unspecified (principal); K76.6 Portal hypertension; F10.288 Alcohol dependence with other alcohol-induced disorder; E87.6 Hypokalemia; K70.31 Alcoholic cirrhosis of liver with ascites; I10 Essential (primary) hypertension; F32.9 Major depressive disorder, single episode, unspecified; Z87.820 Personal history of traumatic brain injury
CPT/HCPCS: 36415; 70450; 74177; 81001; 82040; 82140; 82150; 82247; 82274; 82310; 82374; 82435; 82565; 82947; 83630; 83690; 83735; 83880; 84075; 84132; 84155; 84295; 84450; 84460; 84520; 85025; 85610; 87045; 87324; 87449; 93306; 99285; J1956; J2405; J2550; J3411; J3475; J3480; J3490; J7030; J7040; Q9967

== ENCOUNTER → 2017-12-05 | Outpatient (REF) | payer SELFPAY ==
[2017-11-04 12:06] VITALS: BMI 28.1
[~2017-12-05] MED LIST changes: +CIPR-214 PO; +FOLI-68 PO; +FOLTX PO; +METO-253 PO; +METR-160 PO; +METR500P18 PO; +POTA20TA94 PO; +SPIR50TA31 PO
[2017-12-05 12:34] LABS: INR 1.25
== END ==
LOC: ZZSENDIN 12:14
PROVIDERS: ATTEND Family Medicine
DX: R18.8 Other ascites (principal)
CPT/HCPCS: 85610

== ENCOUNTER → 2017-12-18 | Outpatient (CLI) | payer SELFPAY ==
[2017-11-04 12:06] VITALS: BMI 28.1
--- NOTE | 2017-12-18 13:19 | RADIOLOGY IMAGING REPORT ---
[place] [facility] [place] NAME: Faraz Romano : 1960 MR: [id number] V: [id number] EXAM DATE: ORDERING PHYSICIAN: SANGEETA DEL RIO TECHNOLOGIST: Location: [facility] Patient: Faraz Romano : 1960 Visit/Account:[id number] Date of Sevice: 12/18/2017 Exam type: PARACENTESIS History: Ascites Comparison: None. Findings: Informed consent was obtained. The right side of the patient's abdomen was prepped and draped usual sterile fashion. Local anesthesia was accomplished with one % lidocaine. Under sonographic guidance approximately 5020 mL of straw-colored ascites were removed from the peritoneal cavity. The procedu re was accomplished without apparent complication. IMPRESSION: 1. Successful sonographically guided paracentesis with interval removal of 5020 mL of straw-colored ascitic fluid Report Dictated By: Gracie Arnett MD at 12/18/2017 1:13 PM Report E-Signed By: Gracie Arnett MD at 12/18/2017 1:15 PM WSN:[id number]
== END ==
LOC: US 12-10 01:26
PROVIDERS: ATTEND Family Medicine
DX: R18.8 Other ascites (principal)
CPT/HCPCS: 49083; 87071

== ENCOUNTER 2018-05-10 22:55 | Emergency (ER) | payer SELFPAY ==
[2017-11-04 12:06] VITALS: Wt 83.9 kg
[~2018-05-10 22:55] MED LIST changes: +AMLO-113 PO; -AMLO-99 PO; -METR-160 PO; +METR500T54 PO; -SPIR50TA31 PO; +SPIR50TA33 PO
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
[2018-05-11] MEDS ORDERED: B1/B1TAB PO (00:31)
[2018-05-11] MEDS ORDERED: SPIR25TA80 PO (00:31)
[2018-05-11] MEDS ORDERED: CHOL10005 PO (00:31)
[2018-05-11 01:03] LABS: PLATELET COUNT, AUTOMATED 211 K/uL (150-450)
[2018-05-11] MEDS ORDERED: MAGNESIUM SUL* 2 GM/50 ML IVPB 50 ML IVPB ONE (01:20)
[2018-05-11 02:29] VITALS: BP 131/84
[2018-05-11] MEDS ORDERED: ESCI20TA38 PO (09:24)
== END 2018-05-11 02:51 ==
LOC: ER 23:43
DX: R41.3 Other amnesia (principal); E83.42 Hypomagnesemia
CPT/HCPCS: 36415; 80305; 80320; 80329; 81001; 83735; 84443; 85025; 96365; 99284; J3475; 82040; 82247; 82310; 82374; 82435; 82565; 82947; 84075; 84132; 84155; 84295; 84450; 84460; 84520

== ENCOUNTER 2018-05-11 02:33 | Inpatient (IN) | payer SELFPAY ==
[2017-11-04 12:06] VITALS: Ht 175.3 cm; Wt 83.9 kg
[~2018-05-11] VITALS: Ht 175.3 cm; Wt 83.9 kg
[~2018-05-11 02:33] MED LIST changes: +B1/B1TAB PO; +CHOL10005 PO; +SPIR25TA80 PO
[2018-05-11 03:02] VITALS: BP 138/84
[2018-05-11] MEDS ORDERED: ACETAMINOPHEN 325 MG TAB PO PRN (03:35)
[2018-05-11] MEDS ORDERED: MAG HYD/AL HYD/SIMETH 30ML UDC PO PRN (03:35)
[2018-05-11] MEDS ORDERED: ESCI20TA38 PO (09:24)
[2018-05-11 09:55] VITALS: BP 126/68
[2018-05-11] MEDS: FOLIC ACID/CYANOCOB/PYRIDOXINE PO SCH (09:56)
[2018-05-11] MEDS: CHOLECALCIFEROL 1000 UNIT TAB PO SCH (09:56)
[2018-05-11] MEDS: MULTIVITAMINS TAB PO SCH (09:56)
[2018-05-11] MEDS: amLODIPine BESYL(*) 5 MG TAB PO SCH (09:56)
[2018-05-11] MEDS: ESCITALOPRAM OXALATE 10 MG TAB PO SCH (09:56)
[2018-05-11] MEDS: SPIRONOLACTONE 25 MG TAB PO SCH (09:57)
[2018-05-11 10:58] LABS: PLATELET COUNT, AUTOMATED 233 K/uL (150-450)
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
[2018-05-11 18:50] VITALS: BP 132/72
--- NOTE | 2018-05-11 22:54 | RADIOLOGY IMAGING REPORT ---
FACILITY: [facility] PATIENT NAME: Faraz Romano : 1960 MR: [id number] V: [id number] EXAM DATE: ORDERING PHYSICIAN: HARPREET GARCIA TECHNOLOGIST: Location: [facility] Patient: Faraz Romano : 1960 Visit/Account:[id number] Date of Sevice: 05/11/2018 EXAMINATION: Head CT without intravenous contrast HISTORY: Mental status changes. COMPARISON: 11/03/2017. TECHNIQUE: Contiguous axial images were obtained from the skull base to the vertex without intraven ous contrast. Sagittal and coronal reformatted images are also submitted. One of the following dose optimization techniques was utilized in the performance of this exam: Autom ated exposure control; adjustment of the mA and/or kV according to the patient's size; or use of an i terative reconstruction technique. Specific details can be referenced in the facility's radiology C T exam operational policy. FINDINGS: Brain and intracranial structures: Ventricles, sulci, and cisterns are normal in size. Joseph-white ma tter differentiation is maintained. No midline shift, acute hemorrhage, acute infarct, or mass. Vessels: Mild calcification of the carotid siphons. Calvarium / scalp: Negative. Skull base / visualized face: Negative. Visualized sinuses / orbits: Previous endoscopic sinus surgery. There is mild mucosal thickening in the maxillary sinuses. Mild mucosal thickening in the sphenoid sinuses. Opacification and mucosal thi ckening in residual ethmoid air cells. Previous frontal sinus surgery with postsurgical changes in th e anterior wall of the frontal sinuses. The frontal sinuses are opacified, unchanged. IMPRESSION: No CT evidence of acute intracranial pathology. Report Dictated By: Rhys Reich MD at 05/11/2018 10:43 PM Report E-Signed By: Rhys Reich MD at 05/11/2018 10:50 PM [id number]
[2018-05-12 00:09] VITALS: BP 124/68
[2018-05-12] MEDS ORDERED: diphenhydrAMINE 25 MG CAP PO ONE (00:15)
[2018-05-12 08:05] VITALS: BP 110/64
[2018-05-12] MEDS: amLODIPine BESYL(*) 5 MG TAB PO SCH (08:58)
[2018-05-12] MEDS: FOLIC ACID/CYANOCOB/PYRIDOXINE PO SCH (08:59)
[2018-05-12] MEDS: SPIRONOLACTONE 25 MG TAB PO SCH (08:59)
[2018-05-12] MEDS: MULTIVITAMINS TAB PO SCH (08:59)
[2018-05-12] MEDS: CHOLECALCIFEROL 1000 UNIT TAB PO SCH (08:59)
[2018-05-12] MEDS: ESCITALOPRAM OXALATE 10 MG TAB PO SCH (08:59)
--- NOTE | 2018-05-12 09:00 | BHS Progress Note ---
BHS - Subjective Progress Notes Subjective "I'm doing fairly well. It's frustrating to me that I'm doing things that don't make sense at home. I'm getting a little anxious to get today and see what the rest of the world has to offer." Depression 10/25 denies anger, denies suicidal or homicidal ideation Had difficulty w/sleep last night and was given Benadryl although became disoriented after taking Admits to shutting off water at home "I must be sleep walking because I don't have recollection of it, it doesn't make sense to me." Daughter has medical and financial POA, living with daughter and her boyfriend Suicidal Ideation: None Homicidal Ideation: None S - Objective Physical Exam Vital Signs Vital Signs Date Time Temp Pulse Resp B/P (MAP) Pulse Ox O2 Delivery O2 Flow Rate FiO2 05/12/18 00:09 98.1 77 124/68 (86) 92 Room Air 05/11/18 09:55 16 Deferred Laboratory Tests Test 05/11/18 10:44 White Blood Count 9.8 k/uL Red Blood Count 5.20 M/uL Hemoglobin 15.9 g/dL Hematocrit 46.6 % Mean Corpuscular Volume 89.5 fL Mean Corpuscular Hemoglobin 30.5 pg Mean Corpuscular Hemoglobin Concent 34.1 g/dL Red Cell Distribution Width 15.7 % Platelet Count 233 K/uL Mean Platelet Volume 7.7 fL Neutrophils (%) (Auto) 58.4 % Lymphocytes (%) (Auto) 31.2 % Monocytes (%) (Auto) 7.0 % Eosinophils (%) (Auto) 2.6 % Basophils (%) (Auto) 0.8 % Nucleated RBC Relative Count (auto) 0.0 /100WBC Neutrophils # (Auto) 5.7 K/uL Lymphocytes # (Auto) 3.1 K/uL Monocytes # (Auto) 0.7 K/uL Eosinophils # (Auto) 0.3 K/uL Basophils # (Auto) 0.1 K/uL Nucleated RBC Absolute Count (auto) 0.00 K/uL Peripheral Blood Smear No Y/N Sodium Level 141 mmol/L Potassium Level 4.2 mmol/L Chloride Level 104 mmol/L Carbon Dioxide Level 22 mmol/L Blood Urea Nitrogen 20 mg/dl Creatinine 1.30 mg/dl Glomerular Filtration Rate Calc 56.5 Random Glucose 123 mg/dl Calcium Level 10.1 mg/dl Magnesium Level 1.9 mg/dl Total Bilirubin 0.6 mg/dl Aspartate Amino Transf (AST/SGOT) 35 U/L Alanine Aminotransferase (ALT/SGPT) 27 U/L Alkaline Phosphatase 79 U/L Total Protein 8.2 g/dl Albumin 4.5 g/dl Current Medications Medications (Trade) Dose Ordered Sig/Karel Route PRN Reason Start Time Stop Time Status Last Admin Dose Admin Acetaminophen (Tylenol(*)325 Mg Tab (Or Equiv)) 650 mg Q4H PRN PO HEADACHE 05/11/18 03:35 06/10/18 03:34 Al Hydrox/Mg Hydrox/Simethicone (Maalox(*) 30 ml Udcup (Or Equiv)) 30 ml Q6H PRN PO HEARTBURN 05/11/18 03:35 06/10/18 03:34 Multivitamins (Thera-M Enhanced Tab (Or Equiv)) 1 each QDAY PO 05/11/18 09:00 06/10/18 08:59 05/11/18 09:56 Amlodipine Besylate (Norvasc(*) 5 Mg Tab (Or Equiv)) 10 mg QDAY PO 05/11/18 09:00 06/10/18 08:59 05/11/18 09:56 Cholecalciferol (Vitamin D3 1000 Unit Tab) 1,000 unit QDAY PO 05/11/18 09:00 06/10/18 08:59 05/11/18 09:56 Escitalopram Oxalate (Lexapro 10 Mg Tab (Or Equiv)) 10 mg QDAY PO 05/11/18 09:00 06/10/18 08:59 05/11/18 09:56 Folic Acid/ Cyanocobalamin/ pyridoxin (Foltx Tab (Or Equiv)) 1 each QDAY PO 05/11/18 09:00 06/10/18 08:59 05/11/18 09:56 Spironolactone (Aldactone 25 Mg Tab (Or Equiv)) 100 mg QDAY PO 05/11/18 09:00 06/10/18 08:59 05/11/18 09:57 Diphenhydramine HCl (Benadryl(*) 25 Mg Cap (Or Equiv)) 50 mg ONCE ONCE PO 05/12/18 00:15 05/12/18 00:17 DC 05/12/18 00:20 Muscle Strength and Tone: WNL Gait and Station: Steady S Medications Reviewed: Benefits of Medication, Risks Allergies Reviewed: Yes Mental Status Exam General Appearance: Casual, Well Groomed, Good Eye Contact, Cooperative, Polite, Good Interaction Speech: Clear, Spontaneous, Normal Rate, Normal Rhythm, Normal Volume, Normal Tone Mood: Dysthmic/Depressed Affect: Full and Appropriate, Calm, Neutral Thought Process: No Loose Associations, No Flight of Ideas Thought Content: No Suicidal Ideation, No Homicidal Ideation, No Delusions, No Auditory Halllucinations, No Visual Hallucinations, No Thought Broadcasting, No Ideas of Reference, No Obsessions Sensorium: Clear Cognition: Alert & Oriented-Person, Alert & Oriented-Place, Other (disoriented to date/partial orientation to situation ) Memory: Other (Immediate, recent and remote with deficits, MOCA performed yesterday ) Intelligence: Average Insight Judgment: No Intact, No Appropriate; Poor (Safety concerns at home as daughter reports shutting off water, leaving home and wandering towards highway); No Fair, No Good Result Diagram: 05/11/18 1044 05/11/18 1044 Microbiology Medications (Trade) Dose Ordered Sig/Karel Route PRN Reason Start Time Stop Time Status Last Admin Dose Admin Amlodipine Besylate (Norvasc(*) 5 Mg Tab (Or Equiv)) 10 mg QDAY PO 05/11/18 09:00 06/10/18 08:59 05/11/18 09:56 Cholecalciferol (Vitamin D3 1000 Unit Tab) 1,000 unit QDAY PO 05/11/18 09:00 06/10/18 08:59 05/11/18 09:56 Diphenhydramine HCl (Benadryl(*) 25 Mg Cap (Or Equiv)) 50 mg ONCE ONCE PO 05/12/18 00:15 05/12/18 00:17 DC 05/12/18 00:20 Escitalopram Oxalate (Lexapro 10 Mg Tab (Or Equiv)) 10 mg QDAY PO 05/11/18 09:00 06/10/18 08:59 05/11/18 09:56 Folic Acid/ Cyanocobalamin/ pyridoxin (Foltx Tab (Or Equiv)) 1 each QDAY PO 05/11/18 09:00 06/10/18 08:59 05/11/18 09:56 Multivitamins (Thera-M Enhanced Tab (Or Equiv)) 1 each QDAY PO 05/11/18 09:00 06/10/18 08:59 05/11/18 09:56 Spironolactone (Aldactone 25 Mg Tab (Or Equiv)) 100 mg QDAY PO 05/11/18 09:00 06/10/18 08:59 05/11/18 09:57 Imaging Laboratory Tests 05/11/18 10:44 Laboratory - CBC/BMP Diagrams 05/11/18 10:44 BHS Assessment and Plan [id number] Encounter Date: May 12, 2018 Cynu-[id number] Encounter Time: 09:10 [facility] Plan: Admit to Unit, Necessary Precautions, Individual/Group Therapy, Admin/Titrate Meds, Educate Patient Multpiple Antipsychotics Used: No Problems: (1) Major neurocognitive disorder due to multiple etiologies Status: Chronic (2) Traumatic brain injury Status: Chronic (3) Portal hypertension Status: Chronic (4) Obstructive sleep apnea Status: Chronic (5) Memory dysfunction Status: Chronic (6) Alcohol use disorder, moderate, in sustained remission Status: Chronic Condition Continue current medication and treatment Treatment team 05/13 with daughter Maintain precautions Problem Qualifiers (1) Traumatic brain injury: Encounter type: sequela Loss of consciousness presence/duration: with LOC of unspecified duration Qualified Codes: S06.9X9S - Unspecified intracranial injury with loss of consciousness of unspecified duration, sequela HARPREET GARCIA NP May 12, 2018 09:00
[2018-05-12] MEDS ORDERED: traZODone HCL 50 MG TAB PO PRN (09:20)
[2018-05-12 18:45] VITALS: BP 112/74
[2018-05-12] MEDS ORDERED: traZODone HCL 50 MG TAB PO SCH (21:00)
[2018-05-13 05:34] VITALS: BP 126/86
[2018-05-13 08:27] VITALS: BP 128/74
[2018-05-13] MEDS: ESCITALOPRAM OXALATE 10 MG TAB PO SCH (08:34)
[2018-05-13] MEDS: FOLIC ACID/CYANOCOB/PYRIDOXINE PO SCH (08:34)
[2018-05-13] MEDS: MULTIVITAMINS TAB PO SCH (08:34)
[2018-05-13] MEDS: CHOLECALCIFEROL 1000 UNIT TAB PO SCH (08:35)
[2018-05-13] MEDS: SPIRONOLACTONE 25 MG TAB PO SCH (08:35)
[2018-05-13] MEDS: amLODIPine BESYL(*) 5 MG TAB PO SCH (08:37)
[2018-05-13] MEDS ORDERED: traZODone HCL 50 MG TAB PO PRN (11:15)
--- NOTE | 2018-05-13 11:16 | BHS Progress Note ---
[facility] - Subjective Progress Notes Subjective Patient is polite and cooperative in treatment team meeting this AM. Patient reporting it is probably "June or July", when asked about the date, but did know it was 2017. Patient notably able to remember speaking with therapist the day before. Patient states he would like to return to his home, later miguel stoctkon told us that he no longer owns the home, and she does not want him living in the home due to patient's illogical decisions with in the home, that present as a danger to himself and others. Patient will be placed under an emergency detainment in order to continue to evaluate circumstance and symptoms on the unit. Appetite good, and sleep improving. Suicidal Ideation: None Homicidal Ideation: None [facility] - Objective Physical Exam Vital Signs Vital Signs Date Time Temp Pulse Resp B/P (MAP) Pulse Ox O2 Delivery O2 Flow Rate FiO2 05/13/18 08:27 98.1 88 128/74 (92) 92 Room Air 05/13/18 05:34 15 Muscle Strength and Tone: WNL Gait and Station: Steady [facility] Medications Reviewed: Benefits of Medication, Risks Allergies Reviewed: Yes Mental Status Exam General Appearance: Casual, Well Groomed, Good Eye Contact, Cooperative, Polite, Good Interaction Speech: Clear, Spontaneous, Normal Rate, Normal Rhythm, Normal Volume, Normal Tone Mood: Dysthmic/Depressed (frustrated) Affect: Calm, Neutral Thought Process: Goal Directed ("I would like to go home"); No Loose Associations, No Flight of Ideas Thought Content: No Suicidal Ideation, No Homicidal Ideation, No Delusions, No Auditory Halllucinations, No Visual Hallucinations, No Thought Broadcasting, No Ideas of Reference, No Obsessions, No Compulsions Sensorium: Clear Cognition: Alert & Oriented-Person, Alert & Oriented-Place; No Alert & Oriented-Time, No Vryex-Sasovcnn-Elzvoolgk; Other (disoriented to date/partial orientation to situation ) Memory: Other (Immediate, recent and remote with deficits, MOCA performed yesterday ) Intelligence: Average (historically) Insight Judgment: No Intact, No Appropriate; Poor (Safety concerns at home as daughter reports shutting off water, leaving home and wandering towards highway); No Fair, No Good Result Diagram: 05/11/18 1044 05/11/18 1044 [facility] Assessment and Plan [id number] Encounter Date: May 13, 2018 Deuq-pu-Hzci Encounter Time: 09:00 [facility] Plan: Necessary Precautions, Individual/Group Therapy, Admin/Titrate Meds, Educate Patient Multpiple Antipsychotics Used: No Problems: (1) Major neurocognitive disorder due to multiple etiologies Optional Permanent Comment: history of alcohol use disorder, currently in remission Last Edited By: Clifford Nuñez on May 13, 2018 11:13 Status: Chronic (2) Traumatic brain injury Status: Chronic (3) Obstructive sleep apnea Optional Permanent Comment: history of and apparently never treated. Last Edited By: Clifford Nuñez on May 13, 2018 11:13 Status: Chronic (4) Portal hypertension Status: Chronic (5) Alcohol use disorder, moderate, in sustained remission Status: Chronic Condition 1. emergency detainment to be initiated. 2. continue to gain collateral information. Problem Qualifiers (1) Traumatic brain injury: Encounter type: sequela Loss of consciousness presence/duration: with LOC of unspecified duration Qualified Codes: S06.9X9S - Unspecified intracranial injury with loss of consciousness of unspecified duration, sequela CLIFFORD NUÑEZ MD May 13, 2018 11:16
--- NOTE | 2018-05-13 17:50 | BHS - Psychiatric Evaluation ---
ER - Title 25 MHE Evaluation Title 25 Evaluation Patient Detained By: Physician (Dr. Oz Samuel) Referral Source: Professional: Dr. Oz Samuel Date Patient Detained: May 13, 2018 Time Patient Detained: 10:41 Date Correction Expires: May 16, 2018 Time Correction Expires: Legal Status: Police Hold: No Legal Status: Residence: [facility] Resident, State Resident Assessment Data Provided By: Patient, Other Source ([facility]) HPI/ROS: Per Dr. Samuel," Patient is polite and cooperative in treatment team meeting this AM. Patient reporting it is probably "June or July", when asked about the date, but did know it was 2017. Patient notably able to remember speaking with therapist the day before. Patient states he would like to return to his home, later daughter told us that he no longer owns the home, and she does not want him living in the home due to patient's illogical decisions with in the home, that present as a danger to himself and others. Patient will be placed under an emergency detainment in order to continue to evaluate circumstance and symptoms on the unit. 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 Has no recall of the preceding events.) Memory: Immediate Insight Judgment: Poor Hallucinations: Denies Current Risk & History Current Dangerous Risk Assessm: Ubable to Care for Self (Patient daughter has stated to [facility] physician that patient is not aboe to care for himself. He is currently homeless.) Past Dangerous Risk Assessm: Other (Patient reportedly had substance use (alcohol) that was dangerous to his well-being.) Prior Alcohol/Drug Abuse Patient said he was a drinker in the past. Previous Suicide Attempt: No Previous Attempt Previous Psychiatric Illness: Yes (Patient reports some alcohol abuse in the past.) Previous Psychiatric Treatment: No Risk Assessment & Disposition Evaluated Risk Assessment: Risk is high. Patient is without an understanding of how he came to be in the hospital, or a logical plan for how he will live now that his daughter has stated she does not want him to live in the home any longer. It was determined that patient no longer has any legal right to the home he was residing in with his daughter just prior to coming to the hospital. Impression: Primary Impression: Major neurocognitive disorder due to multiple etiologies Additional Impressions: Memory dysfunction Alcohol use disorder, moderate, in sustained remission Meets Mental Illness Req.: Yes Meets Dangerousness Req.: Yes Emergency Correction to be: Upheld Decision Comment: Patient is in need of a safe and stabilizing environment. Date of Decision: May 13, 2018 Time of Decision: 17:49 Patient is Medically Stable at: Yes Disposition: [facility] Problem Qualifiers EVELYN ALFORD LPC May 13, 2018 17:50
[2018-05-13] MEDS ORDERED: traZODone HCL 50 MG TAB PO SCH (21:00)
[2018-05-13 21:09] VITALS: BP 115/79
[2018-05-14 04:48] VITALS: BP 130/79
[2018-05-14] MEDS: ESCITALOPRAM OXALATE 10 MG TAB PO SCH (08:25)
[2018-05-14] MEDS: CHOLECALCIFEROL 1000 UNIT TAB PO SCH (08:25)
[2018-05-14] MEDS: FOLIC ACID/CYANOCOB/PYRIDOXINE PO SCH (08:26)
[2018-05-14] MEDS: amLODIPine BESYL(*) 5 MG TAB PO SCH (08:27)
[2018-05-14] MEDS: SPIRONOLACTONE 25 MG TAB PO SCH (08:28)
[2018-05-14] MEDS: MULTIVITAMINS TAB PO SCH (08:35)
--- NOTE | 2018-05-14 11:35 | BHS Progress Note ---
BHS - Subjective Progress Notes Subjective Patient communicating well, unable to recognize month, but able to state year, and recognize this provider from the day before. Patient not checking doors, and is sleeping better on trazodone. Will have 10 day hearing, and continue to evaluate symptomatology. Suicidal Ideation: None Homicidal Ideation: None S - Objective Physical Exam Vital Signs Vital Signs Date Time Temp Pulse Resp B/P (MAP) Pulse Ox O2 Delivery O2 Flow Rate FiO2 05/14/18 04:48 98.2 84 16 130/79 (96) 89 Room Air Vital Signs Date Time Temp Pulse Resp B/P (MAP) Pulse Ox O2 Delivery O2 Flow Rate FiO2 05/14/18 04:48 98.2 84 16 130/79 (96) 89 Room Air Hematology Test 05/11/18 10:44 05/13/18 10:17 Red Blood Count 5.20 M/uL (4.00-5.60) Mean Corpuscular Volume 89.5 fL (80.0-96.0) Mean Corpuscular Hemoglobin 30.5 pg (26.0-33.0) Mean Corpuscular Hemoglobin Concent 34.1 g/dL (32.0-36.0) Red Cell Distribution Width 15.7 % (11.5-14.5) Mean Platelet Volume 7.7 fL (7.2-11.1) Neutrophils (%) (Auto) 58.4 % (39.4-72.5) Lymphocytes (%) (Auto) 31.2 % (17.6-49.6) Monocytes (%) (Auto) 7.0 % (4.1-12.4) Eosinophils (%) (Auto) 2.6 % (0.4-6.7) Basophils (%) (Auto) 0.8 % (0.3-1.4) Nucleated RBC Relative Count (auto) 0.0 /100WBC Neutrophils # (Auto) 5.7 K/uL (2.0-7.4) Lymphocytes # (Auto) 3.1 K/uL (1.3-3.6) Monocytes # (Auto) 0.7 K/uL (0.3-1.0) Eosinophils # (Auto) 0.3 K/uL (0.0-0.5) Basophils # (Auto) 0.1 K/uL (0.0-0.1) Nucleated RBC Absolute Count (auto) 0.00 K/uL Peripheral Blood Smear No Y/N Sodium Level 141 mmol/L (137-145) Potassium Level 4.2 mmol/L (3.5-5.0) Chloride Level 104 mmol/L (98-107) Carbon Dioxide Level 22 mmol/L (22-30) Blood Urea Nitrogen 20 mg/dl (9-21) Creatinine 1.30 mg/dl (0.66-1.25) Glomerular Filtration Rate Calc 56.5 Random Glucose 123 mg/dl (75-110) Calcium Level 10.1 mg/dl (8.4-10.2) Magnesium Level 1.9 mg/dl (1.7-2.2) Total Bilirubin 0.6 mg/dl (0.2-1.3) Aspartate Amino Transf (AST/SGOT) 35 U/L (0-35) Alanine Aminotransferase (ALT/SGPT) 27 U/L (0-56) Alkaline Phosphatase 79 U/L (0-126) Total Protein 8.2 g/dl (6.3-8.2) Albumin 4.5 g/dl (3.5-5.0) Ammonia < 9 UMOL/L (9-33) Vitamin B12 Level 553 pg/mL (180-914) Folate >22.3 ng/mL (>=5.9) Rapid Plasma Reagin Nonreactive (NONREACTIVE) Chemistry Test 05/11/18 10:44 05/13/18 10:17 White Blood Count 9.8 k/uL (4.5-11.0) Red Blood Count 5.20 M/uL (4.00-5.60) Hemoglobin 15.9 g/dL (14.0-18.0) Hematocrit 46.6 % (42.0-52.0) Mean Corpuscular Volume 89.5 fL (80.0-96.0) Mean Corpuscular Hemoglobin 30.5 pg (26.0-33.0) Mean Corpuscular Hemoglobin Concent 34.1 g/dL (32.0-36.0) Red Cell Distribution Width 15.7 % (11.5-14.5) Platelet Count 233 K/uL (150-450) Mean Platelet Volume 7.7 fL (7.2-11.1) Neutrophils (%) (Auto) 58.4 % (39.4-72.5) Lymphocytes (%) (Auto) 31.2 % (17.6-49.6) Monocytes (%) (Auto) 7.0 % (4.1-12.4) Eosinophils (%) (Auto) 2.6 % (0.4-6.7) Basophils (%) (Auto) 0.8 % (0.3-1.4) Nucleated RBC Relative Count (auto) 0.0 /100WBC Neutrophils # (Auto) 5.7 K/uL (2.0-7.4) Lymphocytes # (Auto) 3.1 K/uL (1.3-3.6) Monocytes # (Auto) 0.7 K/uL (0.3-1.0) Eosinophils # (Auto) 0.3 K/uL (0.0-0.5) Basophils # (Auto) 0.1 K/uL (0.0-0.1) Nucleated RBC Absolute Count (auto) 0.00 K/uL Peripheral Blood Smear No Y/N Glomerular Filtration Rate Calc 56.5 Calcium Level 10.1 mg/dl (8.4-10.2) Magnesium Level 1.9 mg/dl (1.7-2.2) Total Bilirubin 0.6 mg/dl (0.2-1.3) Aspartate Amino Transf (AST/SGOT) 35 U/L (0-35) Alanine Aminotransferase (ALT/SGPT) 27 U/L (0-56) Alkaline Phosphatase 79 U/L (0-126) Total Protein 8.2 g/dl (6.3-8.2) Albumin 4.5 g/dl (3.5-5.0) Ammonia < 9 UMOL/L (9-33) Vitamin B12 Level 553 pg/mL (180-914) Folate >22.3 ng/mL (>=5.9) Rapid Plasma Reagin Nonreactive (NONREACTIVE) Muscle Strength and Tone: WNL Gait and Station: Steady S Medications Reviewed: Benefits of Medication, Risks Allergies Reviewed: Yes Mental Status Exam General Appearance: Casual, Well Groomed, Good Eye Contact, Cooperative, Polite, Good Interaction; No Tearful, No Psychomotor Agitation, No Psychomotor Retardation, No Bizarre Mannerisms, No Tics Speech: Clear, Spontaneous, Normal Rate, Normal Rhythm, Normal Volume, Normal Tone; No Garbled, No Rambling, No Inappropriate Mood: Dysthmic/Depressed (mild frustration regarding current circumstance. ) Affect: Tearful Thought Process: Organized Thought Content: No Suicidal Ideation, No Homicidal Ideation, No Delusions, No Auditory Halllucinations, No Visual Hallucinations, No Thought Broadcasting, No Ideas of Reference, No Obsessions, No Compulsions Sensorium: Clear Cognition: Alert & Oriented-Person, Alert & Oriented-Place; No Alert & Oriented-Time (Does not know what month it is.), No Tnjij-Ycejwoat-Hnzuxpnlq (partially) Memory: Immediate Intelligence: Average (historically) Insight Judgment: Poor (limited) Result Diagram: 05/11/18 1044 05/11/18 1044 [facility] Assessment and Plan [id number] Encounter Date: May 14, 2018 Liqv-mo-Xibx Encounter Time: 11:00 [facility] Plan: Necessary Precautions, Individual/Group Therapy, Admin/Titrate Meds, Educate Patient Multpiple Antipsychotics Used: No Problems: (1) Major neurocognitive disorder due to multiple etiologies Optional Permanent Comment: history of alcohol use disorder, currently in remission Last Edited By: Clifford Nuñez on May 13, 2018 11:13 Status: Chronic (2) Traumatic brain injury Status: Chronic (3) Obstructive sleep apnea Optional Permanent Comment: history of and apparently never treated. Last Edited By: Clifford Nuñez on May 13, 2018 11:13 Status: Chronic (4) Portal hypertension Status: Chronic (5) Alcohol use disorder, moderate, in sustained remission Status: Chronic Condition 1. schedule sleep study. 2. increase trazodone. 3. schedule 10 day hearing. Problem Qualifiers (1) Traumatic brain injury: Encounter type: sequela Loss of consciousness presence/duration: with LOC of unspecified duration Qualified Codes: S06.9X9S - Unspecified intracranial i njury with loss of consciousness of unspecified duration, sequela CLIFFORD NUÑEZ MD May 14, 2018 11:35
[2018-05-14 14:34] VITALS: BP 126/85
[2018-05-14] MEDS: traZODone HCL 50 MG TAB PO SCH (21:02)
[2018-05-14 21:13] VITALS: BP 126/83
[2018-05-15 04:28] VITALS: BP 124/81
[2018-05-15 08:10] VITALS: BP 124/68
[2018-05-15] MEDS: FOLIC ACID/CYANOCOB/PYRIDOXINE PO SCH (08:17)
[2018-05-15] MEDS: ESCITALOPRAM OXALATE 10 MG TAB PO SCH (08:17)
[2018-05-15] MEDS: SPIRONOLACTONE 25 MG TAB PO SCH (08:17)
[2018-05-15] MEDS: MULTIVITAMINS TAB PO SCH (08:18)
[2018-05-15] MEDS: CHOLECALCIFEROL 1000 UNIT TAB PO SCH (08:18)
[2018-05-15] MEDS: amLODIPine BESYL(*) 5 MG TAB PO SCH (08:18)
--- NOTE | 2018-05-15 10:36 | BHS Progress Note ---
[facility] - Subjective Progress Notes Subjective Patient's family indicates that patient will not be able to live with them, and patient indicates an understanding of this. Appetite and sleep good. Will look into potential placement at [facility]. No other concerns today. Will schedule sleep study and attempt to acquire results from previous sleep study. Suicidal Ideation: None Homicidal Ideation: None [facility] - Objective Physical Exam Vital Signs Vital Signs Date Time Temp Pulse Resp B/P (MAP) Pulse Ox O2 Delivery O2 Flow Rate FiO2 05/15/18 08:10 99.2 98 18 124/68 (86) 94 Room Air Muscle Strength and Tone: WNL Gait and Station: Steady [facility] Medications Reviewed: Benefits of Medication, Risks Allergies Reviewed: Yes Mental Status Exam General Appearance: Casual, Well Groomed, Good Eye Contact, Cooperative, Polite, Good Interaction; No Tearful, No Psychomotor Agitation, No Psychomotor Retardation, No Bizarre Mannerisms, No Tics Speech: Clear, Spontaneous, Normal Rate, Normal Rhythm, Normal Volume, Normal Tone; No Garbled, No Rambling, No Inappropriate Mood: Dysthmic/Depressed (mild frustration regarding current circumstance. ) Affect: Full and Appropriate, Calm; No Tearful Thought Process: Organized, Goal Directed; No Loose Associations, No Flight of Ideas Thought Content: No Suicidal Ideation, No Homicidal Ideation, No Delusions, No Auditory Halllucinations, No Visual Hallucinations, No Thought Broadcasting, No Ideas of Reference, No Obsessions, No Compulsions Sensorium: Clear Cognition: Alert & Oriented-Person, Alert & Oriented-Place; No Alert & Oriented-Time (Does not know what month it is.), No Ndwtm-Bxmusrsd-Twebvhjqp (partially) Memory: Immediate Intelligence: Average (historically) Insight Judgment: Poor (limited) Result Diagram: 05/11/18 1044 05/11/18 1044 [facility] Assessment and Plan Nqhs-hq-[id number] Encounter Date: May 15, 2018 Nesu-xk-Dgog Encounter Time: 10:00 [facility] Plan: Necessary Precautions, Individual/Group Therapy, Admin/Titrate Meds, Educate Patient Tobacco Medications: Not Appropriate Condition Multpiple Antipsychotics Used: No Problems: (1) Major neurocognitive disorder due to multiple etiologies Optional Permanent Comment: history of alcohol use disorder, currently in remission Last Edited By: Clifford Nuñez on May 13, 2018 11:13 Status: Chronic (2) Traumatic brain injury Status: Chronic (3) Obstructive sleep apnea Optional Permanent Comment: history of and apparently never treated. Last Edited By: Clifford Nuñez on May 13, 2018 11:13 Status: Chronic (4) Portal hypertension Status: Chronic (5) Alcohol use disorder, moderate, in sustained remission Status: Chronic Condition 1. continue treatment. 2. look into placement. Problem Qualifiers (1) Traumatic brain injury: Encounter type: sequela Loss of consciousness presence/duration: with LOC of unspecified duration Qualified Codes: S06.9X9S - Unspecified intracranial injury with loss of consciousness of unspecified duration, sequela CLIFFORD NUÑEZ MD May 15, 2018 10:36
[2018-05-15 19:32] VITALS: BP 129/88
[2018-05-15] MEDS: traZODone HCL 50 MG TAB PO SCH (21:13)
[2018-05-16 06:07] VITALS: BP 111/67
[2018-05-16 08:05] VITALS: BP_SYST 134; BP_SYST 149; BP_DIAS 89; BP_DIAS 91
[2018-05-16] MEDS: amLODIPine BESYL(*) 5 MG TAB PO SCH (08:09)
[2018-05-16] MEDS: CHOLECALCIFEROL 1000 UNIT TAB PO SCH (08:09)
[2018-05-16] MEDS: SPIRONOLACTONE 25 MG TAB PO SCH (08:09)
[2018-05-16] MEDS: ESCITALOPRAM OXALATE 10 MG TAB PO SCH (08:09)
[2018-05-16] MEDS: FOLIC ACID/CYANOCOB/PYRIDOXINE PO SCH (08:09)
[2018-05-16] MEDS: MULTIVITAMINS TAB PO SCH (08:09)
--- NOTE | 2018-05-16 12:14 | BHS Progress Note ---
[facility] - Subjective Progress Notes Subjective Patient had hearing this AM, and is now on 10 day extension. Patient doing well on the unit, appetite and sleep good, mild confusion ongoing, will continue treatment. continue to explore potential living options Suicidal Ideation: None Homicidal Ideation: None [facility] - Objective Physical Exam Vital Signs Vital Signs Date Time Temp Pulse Resp B/P (MAP) Pulse Ox O2 Delivery O2 Flow Rate FiO2 05/16/18 08:05 134/89 (104) 05/16/18 08:05 98.3 80 Room Air 05/16/18 06:07 15 90 Muscle Strength and Tone: WNL Gait and Station: Steady [facility] Medications Reviewed: Benefits of Medication, Risks Allergies Reviewed: Yes Mental Status Exam General Appearance: Casual, Well Groomed, Good Eye Contact, Cooperative, Polite, Good Interaction; No Tearful, No Psychomotor Agitation, No Psychomotor Retardation, No Bizarre Mannerisms, No Tics Speech: Clear, Spontaneous, Normal Rate, Normal Rhythm, Normal Volume, Normal Tone; No Garbled, No Rambling, No Inappropriate Mood: Dysthmic/Depressed (mild frustration regarding current circumstance. ) Affect: Full and Appropriate, Calm; No Tearful Thought Process: Organized, Goal Directed; No Loose Associations, No Flight of Ideas Thought Content: No Suicidal Ideation, No Homicidal Ideation, No Delusions, No Auditory Halllucinations, No Visual Hallucinations, No Thought Broadcasting, No Ideas of Reference, No Obsessions, No Compulsions Sensorium: Clear Cognition: Alert & Oriented-Person, Alert & Oriented-Place; No Alert & Oriented-Time (Does not know what month it is.), No Ayiox-Egloxqzv-Tkwaxnuxf (partially) Memory: Immediate (some deficits), Recent, Remote Intelligence: Average (historically) Insight Judgment: Poor (limited) [facility] Assessment and Plan Btpy-[id number] Encounter Date: May 16, 2018 Ukhh-fz-Qfxi Encounter Time: 10:00 [facility] Plan: Necessary Precautions, Individual/Group Therapy, Admin/Titrate Meds, Educate Patient Tobacco Medications: Not Appropriate Condition Multpiple Antipsychotics Used: No Problems: (1) Major neurocognitive disorder due to multiple etiologies Optional Permanent Comment: history of alcohol use disorder, currently in remission Last Edited By: Clifford Nuñez on May 13, 2018 11:13 Status: Chronic (2) Traumatic brain injury Status: Chronic (3) Obstructive sleep apnea Optional Permanent Comment: history of and apparently never treated. Last Edited By: Clifford Nuñez on May 13, 2018 11:13 Status: Chronic (4) Portal hypertension Status: Chronic (5) Alcohol use disorder, moderate, in sustained remission Status: Chronic Condition 1. continue treatment. 2. look for placement options. Problem Qualifiers (1) Traumatic brain injury: Encounter type: sequela Loss of consciousness presence/duration: with LOC of unspecified duration Qualified Codes: S06.9X9S - Unspecified intracranial injury with loss of consciousness of unspecified duration, sequela CLIFFORD NUÑEZ MD May 16, 2018 12:14
[2018-05-16 20:09] VITALS: BP 129/88
[2018-05-16] MEDS: traZODone HCL 50 MG TAB PO SCH (20:53)
[2018-05-17 06:13] VITALS: BP 125/80
[2018-05-17 09:10] VITALS: BP 120/74
--- NOTE | 2018-05-17 09:11 | BHS Progress Note ---
[facility] - Subjective Progress Notes Subjective Patient continues to be pleasant and cooperative on the unit. Denies any other concerns. States mood is good, appetite good, sleep improved with trazodone. Will continue to look for placement. Patient fixates on June concerning current month, and does not seem to remember being corrected. Suicidal Ideation: None Homicidal Ideation: None [facility] - Objective Physical Exam Vital Signs Vital Signs Date Time Temp Pulse Resp B/P (MAP) Pulse Ox O2 Delivery O2 Flow Rate FiO2 05/17/18 06:13 99.3 72 125/80 (95) 90 Room Air 05/16/18 06:07 15 Hematology Test 05/11/18 10:44 05/13/18 10:17 Red Blood Count 5.20 M/uL (4.00-5.60) Mean Corpuscular Volume 89.5 fL (80.0-96.0) Mean Corpuscular Hemoglobin 30.5 pg (26.0-33.0) Mean Corpuscular Hemoglobin Concent 34.1 g/dL (32.0-36.0) Red Cell Distribution Width 15.7 % (11.5-14.5) Mean Platelet Volume 7.7 fL (7.2-11.1) Neutrophils (%) (Auto) 58.4 % (39.4-72.5) Lymphocytes (%) (Auto) 31.2 % (17.6-49.6) Monocytes (%) (Auto) 7.0 % (4.1-12.4) Eosinophils (%) (Auto) 2.6 % (0.4-6.7) Basophils (%) (Auto) 0.8 % (0.3-1.4) Nucleated RBC Relative Count (auto) 0.0 /100WBC Neutrophils # (Auto) 5.7 K/uL (2.0-7.4) Lymphocytes # (Auto) 3.1 K/uL (1.3-3.6) Monocytes # (Auto) 0.7 K/uL (0.3-1.0) Eosinophils # (Auto) 0.3 K/uL (0.0-0.5) Basophils # (Auto) 0.1 K/uL (0.0-0.1) Nucleated RBC Absolute Count (auto) 0.00 K/uL Peripheral Blood Smear No Y/N Sodium Level 141 mmol/L (137-145) Potassium Level 4.2 mmol/L (3.5-5.0) Chloride Level 104 mmol/L (98-107) Carbon Dioxide Level 22 mmol/L (22-30) Blood Urea Nitrogen 20 mg/dl (9-21) Creatinine 1.30 mg/dl (0.66-1.25) Glomerular Filtration Rate Calc 56.5 Random Glucose 123 mg/dl (75-110) Calcium Level 10.1 mg/dl (8.4-10.2) Magnesium Level 1.9 mg/dl (1.7-2.2) Total Bilirubin 0.6 mg/dl (0.2-1.3) Aspartate Amino Transf (AST/SGOT) 35 U/L (0-35) Alanine Aminotransferase (ALT/SGPT) 27 U/L (0-56) Alkaline Phosphatase 79 U/L (0-126) Total Protein 8.2 g/dl (6.3-8.2) Albumin 4.5 g/dl (3.5-5.0) Ammonia < 9 UMOL/L (9-33) Vitamin B12 Level 553 pg/mL (180-914) Folate >22.3 ng/mL (>=5.9) Rapid Plasma Reagin Nonreactive (NONREACTIVE) Chemistry Test 05/11/18 10:44 05/13/18 10:17 White Blood Count 9.8 k/uL (4.5-11.0) Red Blood Count 5.20 M/uL (4.00-5.60) Hemoglobin 15.9 g/dL (14.0-18.0) Hematocrit 46.6 % (42.0-52.0) Mean Corpuscular Volume 89.5 fL (80.0-96.0) Mean Corpuscular Hemoglobin 30.5 pg (26.0-33.0) Mean Corpuscular Hemoglobin Concent 34.1 g/dL (32.0-36.0) Red Cell Distribution Width 15.7 % (11.5-14.5) Platelet Count 233 K/uL (150-450) Mean Platelet Volume 7.7 fL (7.2-11.1) Neutrophils (%) (Auto) 58.4 % (39.4-72.5) Lymphocytes (%) (Auto) 31.2 % (17.6-49.6) Monocytes (%) (Auto) 7.0 % (4.1-12.4) Eosinophils (%) (Auto) 2.6 % (0.4-6.7) Basophils (%) (Auto) 0.8 % (0.3-1.4) Nucleated RBC Relative Count (auto) 0.0 /100WBC Neutrophils # (Auto) 5.7 K/uL (2.0-7.4) Lymphocytes # (Auto) 3.1 K/uL (1.3-3.6) Monocytes # (Auto) 0.7 K/uL (0.3-1.0) Eosinophils # (Auto) 0.3 K/uL (0.0-0.5) Basophils # (Auto) 0.1 K/uL (0.0-0.1) Nucleated RBC Absolute Count (auto) 0.00 K/uL Peripheral Blood Smear No Y/N Glomerular Filtration Rate Calc 56.5 Calcium Level 10.1 mg/dl (8.4-10.2) Magnesium Level 1.9 mg/dl (1.7-2.2) Total Bilirubin 0.6 mg/dl (0.2-1.3) Aspartate Amino Transf (AST/SGOT) 35 U/L (0-35) Alanine Aminotransferase (ALT/SGPT) 27 U/L (0-56) Alkaline Phosphatase 79 U/L (0-126) Total Protein 8.2 g/dl (6.3-8.2) Albumin 4.5 g/dl (3.5-5.0) Ammonia < 9 UMOL/L (9-33) Vitamin B12 Level 553 pg/mL (180-914) Folate >22.3 ng/mL (>=5.9) Rapid Plasma Reagin Nonreactive (NONREACTIVE) Muscle Strength and Tone: WNL Gait and Station: Steady S Medications Reviewed: Benefits of Medication, Risks Allergies Reviewed: Yes Mental Status Exam General Appearance: Casual, Well Groomed, Good Eye Contact, Cooperative, Polite, Good Interaction; No Tearful, No Psychomotor Agitation, No Psychomotor Retardation, No Bizarre Mannerisms, No Tics Speech: Clear, Spontaneous, Normal Rate, Normal Rhythm, Normal Volume, Normal Tone; No Garbled, No Rambling, No Inappropriate Mood: Dysthmic/Depressed (mild frustration regarding current circumstance. ) Affect: Full and Appropriate, Calm; No Tearful Thought Process: Organized, Goal Directed; No Loose Associations, No Flight of Ideas Thought Content: No Suicidal Ideation, No Homicidal Ideation, No Delusions, No Auditory Halllucinations, No Visual Hallucinations, No Thought Broadcasting, No Ideas of Reference, No Obsessions, No Compulsions Sensorium: Clear Cognition: Alert & Oriented-Person, Alert & Oriented-Place; No Alert & Oriented-Time (Does not know what month it is.), No Pxwvx-Oyvlubii-Bguqfagze (partially) Memory: Immediate (some deficits), Recent, Remote Intelligence: Average (historically) Insight Judgment: Poor (limited) [facility] Assessment and Plan Tunq-ni-Sekq Encounter Date: May 17, 2018 Vwsl-gh-Xtrk Encounter Time: 08:40 [facility] Plan: Necessary Precautions, Individual/Group Therapy, Admin/Titrate Meds, Educate Patient Tobacco Medications: Not Appropriate Condition Multpiple Antipsychotics Used: No Problems: (1) Major neurocognitive disorder due to multiple etiologies Optional Permanent Comment: history of alcohol use disorder, currently in remission Last Edited By: Clifford Nuñez on May 13, 2018 11:13 Status: Chronic (2) Traumatic brain injury Status: Chronic (3) Obstructive sleep apnea Optional Permanent Comment: history of and apparently never treated. Last Edited By: Clifford Nuñez on May 13, 2018 11:13 Status: Chronic (4) Portal hypertension Status: Chronic (5) Alcohol use disorder, moderate, in sustained remission Status: Chronic Condition 1. continue treatment. 2. no medication changes. 3. look for placement. Problem Qualifiers (1) Traumatic brain injury: Encounter type: sequela Loss of consciousness presence/duration: with LOC of unspecified duration Qualified Codes: S06.9X9S - Unspecified intracranial injury with loss of consciousness of unspecified duration, sequela CLIFFORD NUÑEZ MD May 17, 2018 09:11
[2018-05-17] MEDS: FOLIC ACID/CYANOCOB/PYRIDOXINE PO SCH (09:13)
[2018-05-17] MEDS: CHOLECALCIFEROL 1000 UNIT TAB PO SCH (09:13)
[2018-05-17] MEDS: MULTIVITAMINS TAB PO SCH (09:13)
[2018-05-17] MEDS: SPIRONOLACTONE 25 MG TAB PO SCH (09:13)
[2018-05-17] MEDS: ESCITALOPRAM OXALATE 10 MG TAB PO SCH (09:13)
[2018-05-17] MEDS: amLODIPine BESYL(*) 5 MG TAB PO SCH (09:13)
[2018-05-17 11:21] VITALS: BP 111/72
[2018-05-17 18:25] VITALS: BP 98/48
[2018-05-17] MEDS: traZODone HCL 50 MG TAB PO SCH (21:20)
[2018-05-18 01:11] VITALS: BP 134/75
[2018-05-18] MEDS: MULTIVITAMINS TAB PO SCH (08:14)
[2018-05-18] MEDS: ESCITALOPRAM OXALATE 10 MG TAB PO SCH (08:14)
[2018-05-18] MEDS: CHOLECALCIFEROL 1000 UNIT TAB PO SCH (08:14)
[2018-05-18] MEDS: amLODIPine BESYL(*) 5 MG TAB PO SCH (08:14)
[2018-05-18] MEDS: SPIRONOLACTONE 25 MG TAB PO SCH (08:16)
[2018-05-18] MEDS: FOLIC ACID/CYANOCOB/PYRIDOXINE PO SCH (08:16)
--- NOTE | 2018-05-18 11:01 | BHS Progress Note ---
[facility] - Subjective Progress Notes Subjective "Good." Reports slept well for him which is 4 hours. Denies SI. Understands plan to be for him to move to [facility] next week. Suicidal Ideation: None Homicidal Ideation: None [facility] - Objective Physical Exam Vital Signs Vital Signs 05/17/18 05/18/18 18:25 01:11 Temp 98.4 Pulse 79 Resp 16 B/P (MAP) 134/75 (94) Pulse Ox 95 O2 Delivery Room Air Muscle Strength and Tone: WNL Gait and Station: Steady [facility] Medications Reviewed: Benefits of Medication, Risks Allergies Reviewed: Yes Mental Status Exam General Appearance: Casual, Well Groomed, Good Eye Contact, Cooperative, Polite, Good Interaction; No Tearful, No Psychomotor Agitation, No Psychomotor Retardation, No Bizarre Mannerisms, No Tics Speech: Clear, Spontaneous, Normal Rate, Normal Rhythm, Normal Volume, Normal Tone; No Garbled, No Rambling, No Inappropriate Mood: Dysthmic/Depressed (mild frustration regarding current circumstance. ) Affect: Full and Appropriate, Calm; No Tearful Thought Process: Organized, Goal Directed; No Loose Associations, No Flight of Ideas Thought Content: No Suicidal Ideation, No Homicidal Ideation, No Delusions, No Auditory Halllucinations, No Visual Hallucinations, No Thought Broadcasting, No Ideas of Reference, No Obsessions, No Compulsions Sensorium: Clear Cognition: Alert & Oriented-Person, Alert & Oriented-Place; No Alert & Oriented-Time (Does not know what month it is.), No Nlagv-Iseucmdb-Doukspmoe (partially) Memory: Immediate (some deficits), Recent, Remote Intelligence: Average (historically) Insight Judgment: Poor (limited) [facility] Assessment and Plan Dvwe-gg-Uzlv Encounter Date: May 18, 2018 Yfdc-vz-Bsin Encounter Time: 10:15 [facility] Plan: Necessary Precautions, Individual/Group Therapy, Admin/Titrate Meds, Educate Patient Tobacco Medications: Not Appropriate Condition Multpiple Antipsychotics Used: No Problems: (1) Major neurocognitive disorder due to multiple etiologies Optional Permanent Comment: history of alcohol use disorder, currently in remission Last Edited By: Oz Samuel on May 13, 2018 11:13 Status: Chronic (2) Alcohol use disorder, moderate, in sustained remission Status: Chronic (3) Traumatic brain injury Status: Chronic Problem Qualifiers (1) Traumatic brain injury: Encounter type: sequela Loss of consciousness presence/duration: with LOC of unspecified duration Qualified Codes: S06.9X9S - Unspecified intracranial injury with loss of consciousness of unspecified duration, sequela GALILEA MATA NP May 18, 2018 11:01
[2018-05-18 11:39] VITALS: BP 118/70
[2018-05-18 20:15] VITALS: BP 110/62
[2018-05-18] MEDS: traZODone HCL 50 MG TAB PO SCH (21:11)
[2018-05-19] MEDS: FOLIC ACID/CYANOCOB/PYRIDOXINE PO SCH (08:25)
[2018-05-19] MEDS: ESCITALOPRAM OXALATE 10 MG TAB PO SCH (08:25)
[2018-05-19] MEDS: MULTIVITAMINS TAB PO SCH (08:25)
[2018-05-19] MEDS: CHOLECALCIFEROL 1000 UNIT TAB PO SCH (08:25)
[2018-05-19] MEDS: amLODIPine BESYL(*) 5 MG TAB PO SCH (08:25)
[2018-05-19] MEDS: SPIRONOLACTONE 25 MG TAB PO SCH (08:28)
[2018-05-19 10:35] VITALS: BP 131/88
--- NOTE | 2018-05-19 12:00 | BHS Progress Note ---
[facility] - Subjective Progress Notes Subjective "I'm good." Reports getting good sleep for him which he reports as 4 hours a night. Denies SI. "Never". Rates depression level a 0, anxiety a 0. Suicidal Ideation: None Homicidal Ideation: None [facility] - Objective Physical Exam Vital Signs Vital Signs 05/19/18 10:35 Temp 98.4 Pulse 74 Resp 20 B/P (MAP) 131/88 (102) Pulse Ox 93 O2 Delivery Room Air Current Medications Medications (Trade) Dose Ordered Sig/Karel Route PRN Reason Start Time Stop Time Status Last Admin Dose Admin Acetaminophen (Tylenol(*)325 Mg Tab (Or Equiv)) 650 mg Q4H PRN PO HEADACHE 05/11/18 03:35 06/10/18 03:34 Al Hydrox/Mg Hydrox/Simethicone (Maalox(*) 30 ml Udcup (Or Equiv)) 30 ml Q6H PRN PO HEARTBURN 05/11/18 03:35 06/10/18 03:34 Multivitamins (Thera-M Enhanced Tab (Or Equiv)) 1 each QDAY PO 05/11/18 09:00 06/10/18 08:59 05/19/18 08:25 Amlodipine Besylate (Norvasc(*) 5 Mg Tab (Or Equiv)) 10 mg QDAY PO 05/11/18 09:00 05/13/18 08:32 DC 05/11/18 09:56 Cholecalciferol (Vitamin D3 1000 Unit Tab) 1,000 unit QDAY PO 05/11/18 09:00 06/10/18 08:59 05/19/18 08:25 Escitalopram Oxalate (Lexapro 10 Mg Tab (Or Equiv)) 10 mg QDAY PO 05/11/18 09:00 06/10/18 08:59 05/19/18 08:25 Folic Acid/ Cyanocobalamin/ pyridoxin (Foltx Tab (Or Equiv)) 1 each QDAY PO 05/11/18 09:00 06/10/18 08:59 05/19/18 08:25 Spironolactone (Aldactone 25 Mg Tab (Or Equiv)) 100 mg QDAY PO 05/11/18 09:00 06/10/18 08:59 05/19/18 08:28 Diphenhydramine HCl (Benadryl(*) 25 Mg Cap (Or Equiv)) 50 mg ONCE ONCE PO 05/12/18 00:15 05/12/18 00:17 DC 05/12/18 00:20 Trazodone HCl (Desyrel 50 Mg Tab (Or Equiv)) 25 mg QHS PO 05/12/18 21:00 05/13/18 11:13 DC 05/12/18 20:53 Trazodone HCl (Desyrel 50 Mg Tab (Or Equiv)) 25 mg QHS PRN PO INSOMNIA 05/12/18 09:20 05/13/18 11:13 DC 05/12/18 22:36 Amlodipine Besylate (Norvasc(*) 5 Mg Tab (Or Equiv)) 5 mg QDAY PO 05/13/18 09:00 06/12/18 08:59 05/19/18 08:25 Trazodone HCl (Desyrel 50 Mg Tab (Or Equiv)) 50 mg QHS PRN PO INSOMNIA 05/13/18 11:15 05/14/18 11:38 DC 05/14/18 00:04 Trazodone HCl (Desyrel 50 Mg Tab (Or Equiv)) 50 mg QHS PO 05/13/18 21:00 05/14/18 11:38 DC 05/13/18 20:46 Trazodone HCl (Desyrel 50 Mg Tab (Or Equiv)) 100 mg QHS PO 05/14/18 21:00 06/13/18 20:59 05/18/18 21:11 Muscle Strength and Tone: WNL Gait and Station: Steady S Medications Reviewed: Benefits of Medication, Risks Allergies Reviewed: Yes Mental Status Exam General Appearance: Casual, Well Groomed, Good Eye Contact, Cooperative, Polite, Good Interaction; No Tearful, No Psychomotor Agitation, No Psychomotor Retardation, No Bizarre Mannerisms, No Tics Speech: Clear, Spontaneous, Normal Rate, Normal Rhythm, Normal Volume, Normal Tone; No Garbled, No Rambling, No Inappropriate Mood: Euthymic Affect: Full and Appropriate, Calm; No Tearful Thought Process: Organized, Goal Directed; No Loose Associations, No Flight of Ideas Thought Content: No Suicidal Ideation, No Homicidal Ideation, No Delusions, No Auditory Halllucinations, No Visual Hallucinations, No Thought Broadcasting, No Ideas of Reference, No Obsessions, No Compulsions Sensorium: Clear Cognition: Alert & Oriented-Person, Alert & Oriented-Place; No Alert & Orie nted-Time (Does not know what month it is.), No Doovh-Nvrmrzpk-Vlzqpuskj (partially) Memory: Immediate (some deficits), Recent, Remote Intelligence: Average (historically) Insight Judgment: Poor (limited) [facility] Assessment and Plan Hrwu-[id number] Encounter Date: May 19, 2018 Kqcd-os-Eqpu Encounter Time: 10:30 [facility] Plan: Necessary Precautions, Individual/Group Therapy, Admin/Titrate Meds, Educate Patient Tobacco Medications: Not Appropriate Condition Multpiple Antipsychotics Used: No Problems: (1) Major neurocognitive disorder due to multiple etiologies Optional Permanent Comment: history of alcohol use disorder, currently in remission Last Edited By: Oz Samuel on May 13, 2018 11:13 Status: Chronic (2) Alcohol use disorder, moderate, in sustained remission Status: Chronic (3) Traumatic brain injury Status: Chronic Problem Qualifiers (1) Traumatic brain injury: Encounter type: sequela Loss of consciousness presence/duration: with LOC of unspecified duration Qualified Codes: S06.9X9S - Unspecified intracranial injury with loss of consciousness of unspecified duration, sequela GALILEA MATA NP May 19, 2018 12:00
[2018-05-19 16:44] VITALS: BP 112/70
[2018-05-19] MEDS: traZODone HCL 50 MG TAB PO SCH (21:01)
[2018-05-20 05:52] VITALS: BP 97/61
[2018-05-20] MEDS: ESCITALOPRAM OXALATE 10 MG TAB PO SCH (08:11)
[2018-05-20] MEDS: FOLIC ACID/CYANOCOB/PYRIDOXINE PO SCH (08:11)
[2018-05-20] MEDS: SPIRONOLACTONE 25 MG TAB PO SCH (08:11)
[2018-05-20] MEDS: CHOLECALCIFEROL 1000 UNIT TAB PO SCH (08:11)
[2018-05-20] MEDS: amLODIPine BESYL(*) 5 MG TAB PO SCH (08:11)
[2018-05-20] MEDS: MULTIVITAMINS TAB PO SCH (08:11)
[2018-05-20 08:45] VITALS: BP 131/88
--- NOTE | 2018-05-20 09:16 | BHS Progress Note ---
BHS - Subjective Progress Notes Subjective Patient remains cooperative on the unit, interacting well, thought that he last saw this provider yesterday. Patient agreeable to an admission into [facility], possibly as early as tomorrow. Sleep and appetite good, not sexually acting out, no door checking. No aggression toward staff or others. Suicidal Ideation: None Homicidal Ideation: None S - Objective Physical Exam Vital Signs Vital Signs Date Time Temp Pulse Resp B/P (MAP) Pulse Ox O2 Delivery O2 Flow Rate FiO2 05/20/18 08:45 98.3 89 20 131/88 (102) 95 Room Air Hematology Test 05/11/18 10:44 05/13/18 10:17 Red Blood Count 5.20 M/uL (4.00-5.60) Mean Corpuscular Volume 89.5 fL (80.0-96.0) Mean Corpuscular Hemoglobin 30.5 pg (26.0-33.0) Mean Corpuscular Hemoglobin Concent 34.1 g/dL (32.0-36.0) Red Cell Distribution Width 15.7 % (11.5-14.5) Mean Platelet Volume 7.7 fL (7.2-11.1) Neutrophils (%) (Auto) 58.4 % (39.4-72.5) Lymphocytes (%) (Auto) 31.2 % (17.6-49.6) Monocytes (%) (Auto) 7.0 % (4.1-12.4) Eosinophils (%) (Auto) 2.6 % (0.4-6.7) Basophils (%) (Auto) 0.8 % (0.3-1.4) Nucleated RBC Relative Count (auto) 0.0 /100WBC Neutrophils # (Auto) 5.7 K/uL (2.0-7.4) Lymphocytes # (Auto) 3.1 K/uL (1.3-3.6) Monocytes # (Auto) 0.7 K/uL (0.3-1.0) Eosinophils # (Auto) 0.3 K/uL (0.0-0.5) Basophils # (Auto) 0.1 K/uL (0.0-0.1) Nucleated RBC Absolute Count (auto) 0.00 K/uL Peripheral Blood Smear No Y/N Sodium Level 141 mmol/L (137-145) Potassium Level 4.2 mmol/L (3.5-5.0) Chloride Level 104 mmol/L (98-107) Carbon Dioxide Level 22 mmol/L (22-30) Blood Urea Nitrogen 20 mg/dl (9-21) Creatinine 1.30 mg/dl (0.66-1.25) Glomerular Filtration Rate Calc 56.5 Random Glucose 123 mg/dl (75-110) Calcium Level 10.1 mg/dl (8.4-10.2) Magnesium Level 1.9 mg/dl (1.7-2.2) Total Bilirubin 0.6 mg/dl (0.2-1.3) Aspartate Amino Transf (AST/SGOT) 35 U/L (0-35) Alanine Aminotransferase (ALT/SGPT) 27 U/L (0-56) Alkaline Phosphatase 79 U/L (0-126) Total Protein 8.2 g/dl (6.3-8.2) Albumin 4.5 g/dl (3.5-5.0) Ammonia < 9 UMOL/L (9-33) Vitamin B12 Level 553 pg/mL (180-914) Folate >22.3 ng/mL (>=5.9) Rapid Plasma Reagin Nonreactive (NONREACTIVE) Chemistry Test 05/11/18 10:44 05/13/18 10:17 White Blood Count 9.8 k/uL (4.5-11.0) Red Blood Count 5.20 M/uL (4.00-5.60) Hemoglobin 15.9 g/dL (14.0-18.0) Hematocrit 46.6 % (42.0-52.0) Mean Corpuscular Volume 89.5 fL (80.0-96.0) Mean Corpuscular Hemoglobin 30.5 pg (26.0-33.0) Mean Corpuscular Hemoglobin Concent 34.1 g/dL (32.0-36.0) Red Cell Distribution Width 15.7 % (11.5-14.5) Platelet Count 233 K/uL (150-450) Mean Platelet Volume 7.7 fL (7.2-11.1) Neutrophils (%) (Auto) 58.4 % (39.4-72.5) Lymphocytes (%) (Auto) 31.2 % (17.6-49.6) Monocytes (%) (Auto) 7.0 % (4.1-12.4) Eosinophils (%) (Auto) 2.6 % (0.4-6.7) Basophils (%) (Auto) 0.8 % (0.3-1.4) Nucleated RBC Relative Count (auto) 0.0 /100WBC Neutrophils # (Auto) 5.7 K/uL (2.0-7.4) Lymphocytes # (Auto) 3.1 K/uL (1.3-3.6) Monocytes # (Auto) 0.7 K/uL (0.3-1.0) Eosinophils # (Auto) 0.3 K/uL (0.0-0.5) Basophils # (Auto) 0.1 K/uL (0.0-0.1) Nucleated RBC Absolute Count (auto) 0.00 K/uL Peripheral Blood Smear No Y/N Glomerular Filtration Rate Calc 56.5 Calcium Level 10.1 mg/dl (8.4-10.2) Magnesium Level 1.9 mg/dl (1.7-2.2) Total Bilirubin 0.6 mg/dl (0.2-1.3) Aspartate Amino Transf (AST/SGOT) 35 U/L (0-35) Alanine Aminotransferase (ALT/SGPT) 27 U/L (0-56) Alkaline Phosphatase 79 U/L (0-126) Total Protein 8.2 g/dl (6.3-8.2) Albumin 4.5 g/dl (3.5-5.0) Ammonia < 9 UMOL/L (9-33) Vitamin B12 Level 553 pg/mL (180-914) Folate >22.3 ng/mL (>=5.9) Rapid Plasma Reagin Nonreactive (NONREACTIVE) Muscle Strength and Tone: WNL Gait and Station: Steady BHS Medications Reviewed: Benefits of Medication, Risks Allergies Reviewed: Yes Mental Status Exam General Appearance: Casual, Well Groomed, Good Eye Contact, Cooperative, Polite, Good Interaction; No Tearful, No Psychomotor Agitation, No Psychomotor R etardation, No Bizarre Mannerisms, No Tics Speech: Clear, Spontaneous, Normal Rate, Normal Rhythm, Normal Volume, Normal Tone; No Garbled, No Rambling, No Inappropriate Mood: Euthymic Affect: Full and Appropriate, Calm; No Tearful Thought Process: Organized, Goal Directed; No Loose Associations, No Flight of Ideas Thought Content: No Suicidal Ideation, No Homicidal Ideation, No Delusions, No Auditory Halllucinations, No Visual Hallucinations, No Thought Broadcasting, No Ideas of Reference, No Obsessions, No Compulsions Sensorium: Clear Cognition: Alert & Oriented-Person, Alert & Oriented-Place; No Alert & O riented-Time (Does not know what month it is, or day.), No Yqbbn-Ygglvhrg-Fjykrmvct (partially) Memory: Immediate (some deficits), Recent, Remote Intelligence: Average (historically) Insight Judgment: Poor (limited) [facility] Assessment and Plan [id number] Encounter Date: May 20, 2018 [id number] Encounter Time: 08:[address] [facility] Plan: Necessary Precautions, Individual/Group Therapy, Admin/Titrate Meds, Educate Patient Tobacco Medications: Not Appropriate Condition Multpiple Antipsychotics Used: No Problems: (1) Major neurocognitive disorder due to multiple etiologies Optional Permanent Comment: history of alcohol use disorder, currently in remission Last Edited By: Clifford Nuñez on May 13, 2018 11:13 Status: Chronic (2) Traumatic brain injury Status: Chronic (3) Obstructive sleep apnea Optional Permanent Comment: history of and apparently never treated. Last Edited By: Clifford Nuñez on May 13, 2018 11:13 Status: Chronic (4) Portal hypertension Status: Chronic (5) Alcohol use disorder, moderate, in sustained remission Status: Chronic Condition 1. continue treatment. 2. look into transfer to [facility]. Problem Qualifiers (1) Traumatic brain injury: Encounter type: sequela Loss of consciousness presence/duration: with LOC of unspecified duration Qualified Codes: S06.9X9S - Unspecified intracranial injury with loss of consciousness of unspecified duration, sequela CLIFFORD NUÑEZ MD May 20, 2018 09:16
[2018-05-20] MEDS: traZODone HCL 50 MG TAB PO SCH (20:55)
[2018-05-20 22:00] VITALS: BP 123/80
[2018-05-21 06:25] VITALS: BP 117/79
[2018-05-21 08:05] VITALS: BP 118/74
[2018-05-21] MEDS: MULTIVITAMINS TAB PO SCH (08:26)
[2018-05-21] MEDS: CHOLECALCIFEROL 1000 UNIT TAB PO SCH (08:26)
[2018-05-21] MEDS: ESCITALOPRAM OXALATE 10 MG TAB PO SCH (08:26)
[2018-05-21] MEDS: amLODIPine BESYL(*) 5 MG TAB PO SCH (08:26)
[2018-05-21] MEDS: SPIRONOLACTONE 25 MG TAB PO SCH (08:26)
[2018-05-21] MEDS: FOLIC ACID/CYANOCOB/PYRIDOXINE PO SCH (08:26)
[2018-05-21] MEDS ORDERED: TRAZ100T31 PO (09:12)
[2018-05-21] MEDS ORDERED: B12/1TAB PO (09:13)
[2018-05-21] MEDS ORDERED: ESCI10TA8 PO (09:14)
[2018-05-21] MEDS ORDERED: MULT-1379 PO (09:16)
[2018-05-21] MEDS ORDERED: AMLO-111 PO (09:17)
--- NOTE | 2018-05-22 14:40 | SCHAAF DISCHARGE ---
DATE OF ADMISSION: May 11, 2018 DATE OF DISCHARGE/SUBSEQUENT ENTRANCE INTO [facility]: May 21, 2018 ATTENDING PHYSICIAN Oz Samuel MD Patient was seen at approximately 0900 hours on 05/21/2018 for a note concerning this dictation. FINAL DIAGNOSES Major neurocognitive impairment, mild in nature without behavioral disturbance. Patient likely has a history of significant alcohol use disorder in full sustained remission. Patient noted to have supportive family, and neurocognitive impairment is likely multifactorial. REASON FOR ADMISSION This is a pleasant 58-year-old male who was initially brought in for memory concerns on 05/10/2018. Patient subsequently transferred to [facility]. Patient continued to demonstrate memory impairment throughout his stay. Patient very cooperative showing no signs of aggressive toward otherwise or self harm, or patient was not engaging in any door checking behaviors either. Patient may have improved somewhat when asleep, which has been problematic at home. Was treated with trazodone and improved somewhat. Patient continued to have difficulty knowing times and knowing when he last seen this provider or other staff. Please see H and P for full details concerning this admission. Patient was able to care for ADLs including showering and dressing and eating. Patient reported his mood okay at time of discharge and was agreeable to go to [facility]. PHYSICAL EXAMINATION Please see emergency room note notable for 58-year-old male in no acute medical distress. Vital signs at the time of admission: Temperature 98.9, pulse 83, respiratory rate 16, blood pressure 142/85 and pulse oximetry 93% on room air. Vital signs at the time of discharge from [facility]: Temperature 98.2, pulse 80, respiratory rate 18, blood pressure 118/74 and pulse oximetry 92% on room air. LABORATORY DATA At time of admission, CBC was unremarkable. CMP notable for creatinine just slightly elevated at 1.30, magnesium 1.9. Ammonia levels were less known detectable. Vitamin B12 553, and folate was greater than 22.3. RPR was nonreactive. Upon admission, patient's toxicology screen was negative with no alcohol. Urinalysis was unremarkable. MENTAL STATUS EXAMINATION GENERAL APPEARANCE, BEHAVIOR AND ATTITUDE: At time of discharge, polite cooperative 58-year-old male. No psychomotor agitation or retardation. No bizarre mannerisms or tics. Patient making good eye contact, seemingly aware of his memory difficulties and at times appears to be trying to cover for some of them. However, patient not overly frustrated either. SPEECH: Largely within normal limits. Regular rate, rhythm, volume and tone. MOOD: Described as okay. AFFECT: Full and bright. THOUGHT PROCESSES: Goal-directed. [facility] Notably getting along well with his daughter, who was here on multiple occasions. No loose associations or flight of ideas. THOUGHT CONTENT: Free of auditory or visual hallucinations, ideas of reference, thought broadcastings, delusions, obsessions or compulsions. Negative for any suicidal or homicidal ideation. SENSORIUM: Clear. COGNITION: Alert and oriented to person, place, time and situation. MEMORY: Immediate memory partially impaired. Recent memory somewhat better, and remote memory appears grossly intact. INTELLIGENCE: Historically average, based on interview and collateral information. INSIGHT AND JUDGMENT: Limited due to ongoing cognitive concerns that seem to represent a fairly rapid recent decline. CONSULTATIONS None. TREATMENT Patient received medications, participated in individual and group therapy. HOSPITAL COURSE This is an overall very pleasant 58-year-old male with some mild memory deficits apparent. These deficits are likely caused by a chronic course of multiple etiologies including history of head trauma, history of chronic alcohol consumption. Condition of patient, however, seems appropriate for [facility] at this time. CONDITION OF PATIENT ON DISCHARGE Stable. Considered a minimal risk to himself or others and appropriate for ongoing care at [facility]. DISPOSITION Patient will discharged to [facility]. He will follow up through [facility] and outpatient providers. Crisis line was given should symptoms return. DISCHARGE MEDICATIONS 1. Aldactone 100 mg daily. 2. Trazodone 100 mg at bedtime. 3. Foltx tablet one each daily. 4. Lexapro 10 mg daily. 5. Norvasc 5 mg daily. 6. Multivitamin with minerals daily. 7. Vitamin D3 1000 international units daily. The risks, benefits and alternatives of the above discharge plan were discussed. Informed consent was given to proceed with the above discharge plan by this patient, patient's daughter, and accepting facility, [facility]. BROOK
== END 2018-05-21 10:48 | disposition home or self-care (01) | DRG 57 ==
LOC: BHS 02:33
PROVIDERS: ADMIT Nurse Practitioner Psychiatric/Mental Health; ATTEND Nurse Practitioner Psychiatric/Mental Health
DX: G31.84 Mild cognitive impairment of uncertain or unknown etiology (principal); K76.6 Portal hypertension; F32.9 Major depressive disorder, single episode, unspecified; F10.21 Alcohol dependence, in remission; Z91.19 Patient's noncompliance with other medical treatment and regimen; G47.9 Sleep disorder, unspecified
CPT/HCPCS: 36415; 70450; 82040; 82140; 82247; 82310; 82374; 82435; 82565; 82607; 82746; 82947; 83735; 84075; 84132; 84155; 84295; 84450; 84460; 84520; 85025; 86592; Q0163

== ENCOUNTER → 2018-07-04 | Outpatient (CLI) | payer SELFPAY ==
[2017-11-04 12:06] VITALS: BMI 28.1
[~2018-07-04] MED LIST changes: -AMLO-113 PO; +AMLO-125 PO; +AMLO-127 PO; +B12/1TAB PO; +ESCI10TA8 PO; +ESCI20TA38 PO; +METR500T15 PO; -METR500T54 PO; +MULT-1379 PO; +TRAZ100T31 PO
== END ==
LOC: RESP 19:41
PROVIDERS: ATTEND Psychiatry & Neurology Psychiatry
DX: G47.33 Obstructive sleep apnea (adult) (pediatric) (principal); G47.36 Sleep related hypoventilation in conditions classified elsewhere; G47.61 Periodic limb movement disorder

== ENCOUNTER → 2018-08-17 | Outpatient (CLI) | payer SELFPAY ==
[2017-11-04 12:06] VITALS: BMI 28.1
== END ==
LOC: RESP 19:52
PROVIDERS: ATTEND Family Medicine
DX: G47.33 Obstructive sleep apnea (adult) (pediatric) (principal); G47.36 Sleep related hypoventilation in conditions classified elsewhere; G47.61 Periodic limb movement disorder

== ENCOUNTER → 2018-11-22 | Outpatient (REF) ==
[2017-11-04 12:06] VITALS: BMI 28.1
--- NOTE | 2018-11-22 10:31 | RADIOLOGY IMAGING REPORT ---
FACILITY: [facility] [place] PATIENT NAME: Faraz Romano : 1960 MR: [id number] V: [id number] EXAM DATE: ORDERING PHYSICIAN: FAUSTINA HERRERA TECHNOLOGIST: Location: [facility] [place] Patient: Faraz Romano : 1960 Visit/Account:[id number] Date of Sevice: 11/22/2018 EXAMINATION: Abdominal ultrasound complete HISTORY: Cirrhosis, ascites COMPARISON: CT November 03, 2017 FINDINGS: Gallbladder: There is shadowing mobile stones within the gallbladder. Gallbladder wall does not appe ar thickened and there was a negative Andrea sign by technologist notation Liver: There is a coarse echo pattern throughout the liver with a lobular contour. Discrete mass is not identified. The portal vein is patent Common duct: Normal measuring five mm. Pancreas: Partially obscured by bowel gas however the visualized portion appears unremarkable Spleen: Normal in size and echogenicity measuring 10.4 cm in length. Kidneys: There is a slightly lobular contour to both kidneys, the right measures 10.4 cm in length, and the left 11.5 cm. No hydronephrosis. There is a 1.1 cm shadowing echogenic focus in the lower p ole the left kidney which corresponds to a parenchymal calcification seen on the recent CT Upper abdominal aorta and IVC: Negative. Ascites: None. IMPRESSION: There is a coarse echotexture to the liver with a lobular contour consistent with the history of cirr hosis. Discrete mass is not identified Cholelithiasis although no evidence of gallbladder wall thickening, positive Andrea sign or biliary d uctal dilatation Slightly lobular contour to the kidneys 1.1 cm shadowing calcification lower pole the left kidney that corresponds to a parenchymal calcifica tion seen on the prior CT Report Dictated By: Gracie Arnett MD at 11/22/2018 10:21 AM Report E-Signed By: Gracie Arnett MD at 11/22/2018 10:26 AM WSN:[id number]
== END ==
LOC: US 00:53
PROVIDERS: ATTEND Nurse Practitioner
DX: K80.20 Calculus of gallbladder without cholecystitis without obstruction (principal)
CPT/HCPCS: 76700